=== PATIENT | male | born 1945 | race Caucasian/White ===

== ENCOUNTER → 2018-06-04 10:18 | Outpatient (CLI) | payer OTHER, SELFPAY ==
[2018-06-04 11:56] LABS: Absolute Lymphocyte Count 1.93 X10^3/ul (0.83-4.51); Absolute Neutrophil Count 2.9 X10^3/uL (2.0-7.7); Basophil# 0.04 X10^3/uL; Basophil% 0.7 % (0-1); Eosinophil# 0.14 X10^3/uL; Eosinophils% 2.5 % (0-5); Hematocrit 45.5 % (40-54); Hemoglobin 15.4 g/dl (13.0-16.5); Lymphocyte # 1.93 X10^3/ul (4.0); Lymphocyte % 34.5 % (19-41); Mean Corp Hgb Conc 33.8 g/gl (32-36); Mean Corpuscular Volume 88.7 fL (80-94); Mean Platelet Vol. 9.6 fl (6.2-12.0); Monocyte# 0.63 X10^3/uL; Monocyte% 11.3 % (0-10); Neutrophil # 2.85 X10^3/uL (2.7-7.7); Neutrophil % 50.8 % (47-70); POSITIVE COUNT NO; POSITIVE DIFFERENTIAL NO; POSITIVE MORPHOLOGY NO; Platelet Count 278 K/mm3 (150-450); RBC Distribution Width CV 12.9 % (11.6-14.6); RBC Distribution Width SD 41.8 fl (35.1-43.9); Red Blood Count 5.13 M/mm3 (4.6-6.2); White Blood Count 5.6 K/mm3 (4.4-11.0)
[2018-06-04 12:33] LABS: ALB/GLOB Ratio 0.9 RATIO (0.9-2.4); AST(SGOT) 25 U/L (15-37); Alanine Aminotransfer ALT/SGPT 36 U/L (16-61); Albumin, Serum 3.7 g/dL (3.2-5.0); Alkaline Phosphatase 89 U/L (45-117); Anion Gap 9 (5-15); BUN 17 mg/dL (7-18); BUN/Creat Ratio 19.8 RATIO (10-20); Calcium,Total 8.8 mg/dL (8.5-10.1); Chloride 107 mmol/L (98-107); Creatinine, Serum 0.86 mg/dL (0.70-1.30); EST Glomerular Filtration Rate 93 mL/min (>60); Est Glom Filt Rate - Afr Amer 113 mL/min (>60); Globulin 3.9 g/dL (2.2-4.2); Glucose 98 mg/dL (74-106); Potassium 3.9 mmol/L (3.5-5.1); Protein, Total 7.6 g/dL (6.4-8.2); Sodium Level 143 mmol/L (136-145)
== END ==
PROVIDERS: Family Provider Family Medicine; PCP Family Medicine; Visit Provider Family Medicine
DX: R97.20 Elevated prostate specific antigen [PSA] (principal)
CPT/HCPCS: 36415; 80053; 84153; 85025

== ENCOUNTER → 2019-07-26 12:37 | Outpatient (CLI) | payer MEDICARE, SELFPAY | PROVIDERS: Family Provider Family Medicine; PCP Family Medicine; Referring Provider Urology; Visit Provider Urology | DX: R97.20 Elevated prostate specific antigen [PSA] (principal) | CPT/HCPCS: 36415; 84153 ==

== ENCOUNTER 2020-02-04 20:56 | Emergency (ER) | payer MEDICARE, SELFPAY ==
[2020-02-04 20:57] VITALS: BP 149/77; PULSE 85; RESP 18; TEMP 35.7; O2SAT 97; BMI 26.6
--- NOTE | 2020-02-04 21:32 | ED.VIS.GEN ---
History of Present Illness Chief Complaint: Head Injury Informant: Patient Onset: Today Narrative: Patient states that he was working on his deck trying to get a screw out with a crowbar. The crowbar came up and struck him at the vertex of his scalp. He noted bleeding. Tetanus is up-to-date. No loss of consciousness. He is unsure if the wound needed medical attention Past Medical History - Allergies and Home Meds Allergies/Adverse Reactions: Allergies aspirin Allergy (Verified 02/04/20 20:57) Shortness of breath Primary Care Physician: Brian Beard MD [Primary Care Provider] - Smoking Status: Never smoker Review of Systems General: Denies: Chills, Fever, Sweats Eyes: Denies: Visual changes - bilaterally, Diplopia ENT: Denies: Rhinorrhea, Sore throat Cardiovascular: Denies: Chest pain, Palpitations Respiratory: Denies: Dyspnea, Cough, Dyspnea on exertion Gastrointestinal: Denies: Abdominal pain, Nausea, Vomiting, Diarrhea, Melena, Hematochezia Genitourinary: Denies: Dysuria, Hematuria, Frequency Musculoskeletal: Denies: Back pain, Extremity Pain Skin: Denies: Rash, Wounds Neurological: Denies: Headache, Weakness, Numbness Physical Exam Vital Signs/Narrative: Vital Signs Temp Pulse Resp BP Pulse Ox 02/04/20 20:57 96.3 F L 85 18 149/77 H 97 Inital Vital Signs reviewed: Yes General: Well nourished, Well developed, No Acute Distress Head: Normocephalic, Atraumatic Eyes: Perrl, EOMI ENT: Moist mucous membranes, No rhinorrhea Neck: Supple, Nontender Cardiovascular: Regular rate, Regular rhythm, No murmurs Respiratory: No distress, CTA bilaterally, Chest nontender Abdomen: Soft, Nontender, Nondistended, Normal bowel sounds Back: Nontender, Normal Inspection Extremities: Nontender, No edema Skin: Normal color, No rash, Trauma - There are 2 square flaps on the vertex of the scalp measuring 1 cm x 1 cm x 1 cm and attached posteriorly to the rest of the scalp. They do not go to subcutaneous tissue. They are consistent with a skin tear. Neurological: Alert, Oriented x3, Cranial nerves II-XII grossly intact, Normal Strength, Normal Sensation Psychological: Normal affect, Normal Mood Diagnostic/Tx/Re-eval - Medical Decision Making I think at this point is best not to do much with the tissue. The tissue is highly concussed and ecchymotic. It is very thin I think if we do nothing and allow the blood to clot he will have is good his cosmetic outcome is if we would suture or attempt to glue. Patient is comfortable with this plan. ED Disposition - Plan for ED Patient: Disposition: Home or Assisted Living Diagnosis: Skin tear Instructions: ED Head Injury Adult, ED AVULSION LACERATION Referrals: Brian Beard MD [Primary Care Provider] - As Needed
[2020-02-04 21:46] VITALS: BP 133/75; PULSE 74; RESP 18; O2SAT 99
== END 2020-02-04 21:47 | disposition home or self-care (01) ==
PROVIDERS: Emergency Provider Emergency Medicine; PCP Family Medicine
DX: S01.01XA Laceration without foreign body of scalp, initial encounter (principal); W22.8XXA Striking against or struck by other objects, initial encounter; Y92.89 Other specified places as the place of occurrence of the external cause; Y99.9 Unspecified external cause status; Z88.6 Allergy status to analgesic agent
CPT/HCPCS: 99282

== ENCOUNTER → 2020-07-03 11:46 | Outpatient (CLI) | payer MEDICARE, SELFPAY | PROVIDERS: PCP Family Medicine; Referring Provider Family Medicine; Visit Provider Family Medicine | DX: C61 Malignant neoplasm of prostate (principal) | CPT/HCPCS: 36415; 84153 ==

== ENCOUNTER → 2020-07-14 09:54 | Outpatient (CLI) | payer MEDICARE, SELFPAY ==
--- NOTE | 2020-07-14 10:01 | NM_ITS ---
CLINICAL: 75-year-old male with reported history of carcinoma of the prostate. WHOLE BODY 99m Tc MDP RADIONUCLIDE BONE SCINTIGRAPHY COMPARISON: None available FINDINGS: Following the intravenous administration of approximately 25.0 mCi of 99m Tc MDP, whole body bone images reveal: 1. Increased radiopharmaceutical concentration is identified in the mid cervical spine posteriorly on the right, the ninth, 11th-12th thoracic vertebra posteriorly on the right, bilateral wrist reticulations, the acromioclavicular compartments of both shoulders, sternoclavicular compartment of the right shoulder, medial tibial compartments of both knees, the posterior compartment of the left ankle. 2. The remaining skeletal structures are scintigraphically unremarkable with normal-appearing renal images and urinary bladder activity identified. Facilitated uptake is observed in the bilateral mandible and maxilla most consistent with periodontal disease and/or periostitis. NM/Bone Scan Whole Body IMPRESSION: 1. Enhanced tracer distribution defined in the cervical and thoracic spine, bilateral shoulders and wrists, knees bilaterally, the left ankle is most consistent with degenerative arthritis. 2. There is no definitive scintigraphic evidence of diffuse axial skeletal metastatic disease on the current examination. Electronically Signed: Cirilo Nance DO at 23:16 EST Tel , Service support ,
== END ==
PROVIDERS: PCP Family Medicine; Referring Provider Family Medicine; Visit Provider Family Medicine
DX: R97.20 Elevated prostate specific antigen [PSA] (principal)
CPT/HCPCS: 78306

== ENCOUNTER → 2020-07-20 09:07 | Outpatient (CLI) | payer MEDICARE, SELFPAY ==
[2020-07-20 09:41] LABS: Hematocrit 47.2 % (40-54); Hemoglobin 15.2 g/dL (13.0-16.5); Mean Corp Hgb Conc 32.2 g/dL (32-36); Mean Corpuscular Hgb 28.7 pg (27.0-32.0); Mean Corpuscular Volume 89.2 fL (80-94); Mean Platelet Vol. 8.8 fl (6.2-12.0); Platelet Count 275 K/mm3 (150-450); RBC Distribution Width CV 12.3 % (11.6-14.6); RBC Distribution Width SD 40.7 fl (35.1-43.9); Red Blood Count 5.29 M/mm3 (4.6-6.2); White Blood Count 6.2 K/mm3 (4.4-11.0)
[2020-07-20 10:11] LABS: Anion Gap 6 (5-15); BUN 15 mg/dL (7-18); BUN/Creat Ratio 14.6 RATIO (10-20); Calcium,Total 9.2 mg/dL (8.5-10.1); Chloride 109 mmol/L (98-107); Creatinine, Serum 1.03 mg/dL (0.70-1.30); EST Glomerular Filtration Rate 75 mL/min (>60); Est Glom Filt Rate - Afr Amer 91 mL/min (>60); Glucose 157 mg/dL (74-106); Potassium 3.7 mmol/L (3.5-5.1); Sodium Level 142 mmol/L (136-145)
== END ==
PROVIDERS: PCP Family Medicine; Referring Provider Urology; Visit Provider Urology
DX: Z01.812 Encounter for preprocedural laboratory examination (principal); Z11.59 Encounter for screening for other viral diseases; R97.20 Elevated prostate specific antigen [PSA]
CPT/HCPCS: 36415; 80048; 85027

== ENCOUNTER → 2020-07-23 09:28 | Outpatient (CLI) | payer MEDICARE, SELFPAY ==
--- NOTE | 2020-07-23 09:29 | EKG12_ITS ---
Test Reason : PRE OP Blood Pressure : / mmHG Vent. Rate : 067 BPM Atrial Rate : 067 BPM P-R Int : 154 ms QRS Dur : 098 ms QT Int : 404 ms P-R-T Axes : 058 -05 048 degrees QTc Int : 426 ms Normal sinus rhythm Normal ECG Confirmed by ALYSA KRUEGER, EMILI ([id number]), marketing editor FEDERICO WELDON ([id number]) on 07/27/2020 1:11:45 PM Referred By: Ethan Oliveros Confirmed By:SARAH WATT MD
== END ==
PROVIDERS: PCP Family Medicine; Referring Provider Urology; Visit Provider Urology
DX: Z01.812 Encounter for preprocedural laboratory examination (principal); Z11.59 Encounter for screening for other viral diseases
CPT/HCPCS: 87635; 93005; C9803; U0003

== ENCOUNTER → 2020-07-31 15:56 | Outpatient (CLI) | payer MEDICARE, SELFPAY ==
--- NOTE | 2020-07-31 | IMM_PTH ---
PATIENT: MOMO JEFFERSON LOC: [facility] U#:[id number] AGE/SX: 80/M ROOM: RE07/31/[address]: Dr. Ethan Oliveros MD : 1945 BED: DIS: SPEC #: [id number] RECD: 08/04/20 10:54 STATUS: ABE REBrendon #: [id number] KEYONNA: 07/31/20 00:[address]: Ethan Oliveros DEPT: IMMUNOHISTOCHEMISTRY RECD BY: Kelly Huang ENTERED: 08/04/20 10:55 SP TYPE: IMMUNO OTHR DR: Dr. Brian Beard MD Tissues: E - PROSTATE LEFT Procedures: P40 (add) 34BE12 (initial) PHYSICIAN & INSTITUTION [place] [id number] SPECIMEN INFORMATION: Tissue Source: E - Left prostate, mid, core biopsy Clinical Info: Elevated PSA, BPH Specimen Number: [id number] CPT code: 99194, 57153 METHODOLOGY: Deparaffinized sections of prefer/formalin-fixed tissue or PAP/DQ stained slides are incubated with monoclonal/polyclonal antibodies/oligonucleotide probes. Localization is made via biotin free immunoperoxidase method. Appropriate controls are performed and reacted as expected. Results on target cell population are indicated in the following table: RESULTS: ANTIBODY / CLONE RESULT Block E P40 (BC28) negative 34BE12 (34BE12) negative These tests were developed and their performance characteristics determined by [facility]. They may not have been cleared or approved by the U.S. Food and Drug Administration. The FDA has determined that such clearance or approval is not necessary. The above immunohistochemical/dualISH markers are ordered and reviewed by the Pathologist. INTERPRETATION: E. Left prostate, mid, core biopsy: Adenocarcinoma. KAVON:amanda 08/05/20
--- NOTE | 2020-07-31 08:40 | PROSBIL_PTH ---
PATIENT: MOMO JEFFERSON LOC: [facility] U#:[id number] AGE/SX: 80/M ROOM: RE07/31/[address]: Dr. Ethan Oliveros MD : 1945 BED: DIS: SPEC #: [id number] RECD: 07/31/20 15:21 STATUS: ABE LEAH #: [id number] KEYONNA: 07/31/20 08:[address]: Ethan Oliveros DEPT: SURGICAL PATHOLOGY RECD BY: Manda Nuñez ENTERED: 08/03/20 07:14 SP TYPE: PROST BX KATHY DR: Dr. Brian Beard MD [facility] Tissues: A - PROSTATE RIGHT B - PROSTATE RIGHT C - PROSTATE RIGHT D - PROSTATE LEFT E - PROSTATE LEFT F - PROSTATE LEFT Procedures: PROSTATE BX HEADER OPERATION: Cystoscopy and transrectal ultrasound-guided prostate biopsy PRE-OP DIAGNOSIS: Elevated PSA, BPH TISSUE SUBMITTED: A - Right base, B - Right mid, C - Right apex, D - Left base, E - Left mid, F - Left apex MICROSCOPIC DIAGNOSIS A. Right prostate, base, core biopsy: Glandular atrophy and minimal chronic inflammation. B. Right prostate, mid, core biopsy: Glandular atrophy and minimal chronic inflammation. C. Right prostate, apex, core biopsy: Focal glandular atrophy. Minimal chronic inflammation. D. Left prostate, base, core biopsy: Focal glandular atrophy. Minimal chronic inflammation. E. Left prostate, mid, core biopsy: Adenocarcinoma. [place] grade: 6 (3+3) Cores involved: 2 out of 2 Tissue involved: 10% Greatest tumor length: 2 millimeters See comment. F. Left prostate, apex, core biopsy: Chronic inflammation and focal glandular atrophy. AM:amanda 08/04/20 COMMENT E. Immunohistochemistry ([id number]) supports the above diagnosis. MICROSCOPIC DESCRIPTION Slides are reviewed. GROSS DESCRIPTION A - Received is one container designated prostate, right base. The specimen consists of two elongated fragments of light rothman-white soft tissue each measuring 1 cm in length and 0.1 cm in diameter. The specimen is totally submitted in one cassette. B - Received is one container designated prostate, right mid. The specimen consists of two elongated fragments of light rothman-white soft tissue each measuring 1.5 cm in length and 0.1 cm in diameter. The specimen is totally submitted in one cassette. C - Received is one container designated prostate, right apex. The specimen consists of three elongated fragments of light rothman-white soft tissue each measuring 1.5 cm in length and 0.1 cm in diameter. The specimen is totally submitted in one cassette. D - Received is one container designated prostate, left base. The specimen consists of two elongated fragments of light rothman-white soft tissue each measuring 1 cm in length and 0.1 cm in diameter. The specimen is totally submitted in one cassette. E - Received is one container designated prostate, left mid. The specimen consists of two elongated fragments of light rothman-white soft tissue each measuring 1.5 cm in length and 0.1 cm in diameter. The specimen is totally submitted in one cassette. F - Received is one container designated prostate, left apex. The specimen consists of two elongated fragments of light rothman-white soft tissue each measuring 1 cm in length and 0.1 cm in diameter. The specimen is totally submitted in one cassette. / AM:rg 08/03/20 TC:0 CPT: G0146
== END ==
PROVIDERS: PCP Family Medicine; Referring Provider Urology; Visit Provider Urology
DX: R97.20 Elevated prostate specific antigen [PSA] (principal); N40.0 Benign prostatic hyperplasia without lower urinary tract symptoms
CPT/HCPCS: 88305; 88341; 88342; G0416

== ENCOUNTER → 2020-08-04 10:48 | Outpatient (CLI) | payer MEDICARE, SELFPAY ==
--- NOTE | 2020-08-04 10:52 | ART_ITS ---
Reason For Study: PAD Procedure A bilateral lower extremity continuous wave Doppler with analog waveform analysis and ankle brachial indexes. Left Segmental Pressures Left brachial= 132mmHg. Left posterior tibial artery = 174mmHg. Left dorsalis pedis artery = 156mmHg. The left dorsalis pedis waveforms are triphasic. The left posterior tibial artery waveforms are triphasic. Right Segmental Pressures Right brachial= 140mmHg. Right posterior tibial artery = 165mmHg. Right dorsalis pedis artery = 157mmHg. The right dorsalis pedis waveforms are triphasic. The right posterior tibial artery waveforms are triphasic. Indices The right ankle brachial index by the posterior tibial artery is 1.18. The right ankle brachial index by the dorsalis pedis is 1.12. The left ankle brachial index by the posterior tibial artery is 1.24. The left ankle brachial index by the dorsalis pedis is 1.11. Interpretation Summary Triphasic Doppler waveforms are noted at ankle level bilaterally. Pulse-volume recordings appear satisfactory at ankle level bilaterally. Resting ankle-brachial indices are normal bilaterally. The patient was ambulated on a treadmill for 5 minutes at 2.0 MPH and a 5% incline, following which ankle pressures augmented bilaterally, a normal physiological response. There is no evidence of significant arterial occlusive disease in the lower extremities bilaterally. Ordering Physician: Brian Beard Performed By: KIRSTEN SOLANO RVT
== END ==
PROVIDERS: PCP Family Medicine; Referring Provider Family Medicine; Visit Provider Family Medicine
DX: I73.9 Peripheral vascular disease, unspecified (principal)
CPT/HCPCS: 93922

== ENCOUNTER 2020-09-16 05:23 | Day surgery (SDC) | payer MEDICARE, SELFPAY ==
[2020-09-16] VITALS (11 sets, daily range): BP systolic 108–125; BP diastolic 52–84; PULSE 76–99; RESP 14–16; TEMP 36.1–36.8; O2SAT 93–99; BMI 26.3
--- NOTE | 2020-09-16 | IMM_PTH ---
PATIENT: MOMO JEFFERSON [place] [facility] [id number] AGE/SX: 75/M ROOM: RE09/16/[address]: Dr. Ethan Oliveros MD : 1945 BED: DIS: 09/17/2020 SPEC #: [id number] RECD: 09/18/20 11:52 STATUS: ABE REQ #: [id number] KEYONNA: 09/16/20 00:[address]: Ethan Oliveros DEPT: IMMUNOHISTOCHEMISTRY RECD BY: Kelly Huang ENTERED: 09/18/20 11:53 SP TYPE: IMMUNO OTHR DR: Dr. Brian Beard MD Tissues: B - Prostate, NOS Procedures: P40 (add) 34BE12 (initial) PHYSICIAN & INSTITUTION [place] [id number] SPECIMEN INFORMATION: Tissue Source: B - Prostate Clinical Info: Malignant neoplasm of prostate, elevated PSA Specimen Number: [id number] CPT code: 72684, 77271 METHODOLOGY: Deparaffinized sections of prefer/formalin-fixed tissue or PAP/DQ stained slides are incubated with monoclonal/polyclonal antibodies/oligonucleotide probes. Localization is made via biotin free immunoperoxidase method. Appropriate controls are performed and reacted as expected. Results on target cell population are indicated in the following table: RESULTS: ANTIBODY / CLONE RESULT Block B8 P40 (BC28) negative 34BE12 (34BE12) negative These tests were developed and their performance characteristics determined by [facility]. They may not have been cleared or approved by the U.S. Food and Drug Administration. The FDA has determined that such clearance or approval is not necessary. The above immunohistochemical/dualISH markers are ordered and reviewed by the Pathologist. INTERPRETATION: [place]. Prostate: Adenocarcinoma. AM:amanda 09/21/2020
--- NOTE | 2020-09-16 | PROST_PTH ---
PATIENT: MOMO JEFFERSON LOC: [facility] [place] U#:[id number] AGE/SX: 75/M ROOM: RE09/16/[address]: Dr. Ethan Oliveros MD : 1945 BED: DIS: 09/17/2020 SPEC #: [id number] RECD: 09/16/20 12:21 STATUS: ABE LEAH #: [id number] KEYONNA: 09/16/20 00:[address]: Ethan Oliveros DEPT: SURGICAL PATHOLOGY RECD BY: Rickie Márquez ENTERED: 09/17/20 07:42 SP TYPE: PROSTATE OTHR DR: Dr. Brian Beard MD Tissues: A - Adipose tissue B - Prostate, NOS Procedures: Surgery Specimen Level III Surgery Specimen Level HEADER OPERATION: Lap robotic radical prostatectomy, nerve sparing PRE-OP DIAGNOSIS: Malignant neoplasm of prostate, elevated PSA TISSUE SUBMITTED: A - Fat over prostate, B - Prostate MICROSCOPIC DIAGNOSIS A. Fat over prostate, biopsy: Mature adipose tissue. No evidence of malignancy. B. Prostate, radical prostatectomy: Adenocarcinoma. See cancer template below. AM:amanda 09/21/2020 COMMENT PROSTATE CANCER (RADICAL) SUMMARY Procedure: Radical Prostatectomy Prostate Size: 6.5 x 5 x 4 cm Histologic type: Adenocarcinoma Histologic grade: 6 (3+3) Percent of Pattern 4: 0 Percent of Pattern 5: 0 Intraductal Carcinoma: Not identified Tumor Quantitation: 3 x 3 x 1 mm Extraprostatic Extension: Not identified Urinary Bladder Neck Invasion: Not identified Seminal Vesicle Invasion: Not identified Lymphvascular Invasion: Not identified Perineural Invasion: Not identified Margins: Free of carcinoma Regional Lymph Nodes: Not submitted Treatment Effect: Unknown Additional Pathologic Findings: Benign prostatic hyperplasia and chronic inflammation. Ancillary studies: Immunohistochemistry ([id number]) PATHOLOGIC STAGE: pT2 Nx Mx The above summary is in compliance with [employer] (CAP) Cancer Protocols Checklist and [place] Joint Committee on Cancer (AJCC), Staging Manual, 8th Ed. Reference is made to the patient's previous case ([id number]) in which a 2mm focus of adenocarcinoma, 6(3+3), was identified in two of thirteen cores. Case has been reviewed in consultation with Dr. Harrison who concurs with the above diagnosis. IDC:[email or web address] MICROSCOPIC DESCRIPTION Slides are reviewed. GROSS DESCRIPTION A - Received in fixative is one container labeled with the patient's name and designated fat over prostate. The specimen consists of an irregular fragment of rothman-yellow fibrofatty tissue measuring 3 x 2 x 1 cm. Serial sections do not reveal mass lesions. The specimen is sectioned and totally submitted in one cassette. B - Received in fixative is one container labeled with the patient's name and designated prostate. The specimen consists of a radical prostatectomy specimen consisting of prostate and bilateral seminal vesicles. The specimen weighs 99 gm. The prostate measures 6.5 cm transversely, 4 cm anterior-posteriorly and 5 cm craniocaudally. The specimen is differentially inked as follows: anterior - red, posterior - black, right half - blue, left half - green. The specimen is serially sectioned from apex to base. No distinct mass lesion is identified. Herpetology Teacher sections are submitted in 20 cassettes as follows: 1??distal urethral margin, shave, 2 - bladder neck shave, 3 & 4 - most basal section of prostate, 5??seminal vesicles, 6-9 - apex, 10-15 - mid portion of prostate, 16-20 - basal portion of prostate. / AM:amanda 09/17/2020 TC:0 CPT: 89541, 36266
[2020-09-16] MEDS: Lactated Ringers 1,000 ML 100 ML IV ×3 (06:18→09:15)
[2020-09-16] MEDS: Cefazolin 2 GM in 0.9% Normal Saline 100 ML IV (07:25)
--- NOTE | 2020-09-16 07:32 | HP.PCM_ITS ---
Problem List (1) Prostate cancer Status: Acute History of Present Illness Date of Admission: 09/16/20 Chief Complaint: Prostate cancer The patient is a 75 year old male with prostate cancer, very healthy male with no medical problems today we talked at the options of management we discussed the possibility of doing active surveillance but he wants to have the cancer treated. So he elected to undergo radical prostatectomy and working to proceed with bilateral nerve sparing. Past Medical History Allergies aspirin Allergy (Verified 09/16/20 05:45) Shortness of breath Home Medications: Ambulatory Orders Medication Instructions Recorded Ergocalciferol [Vitamin D] 1 tab DAILY 09/09/20 Multivitamin 09/09/20 Pitavastatin Calcium [Livalo] 2 mg PO QWEEK 09/09/20 Saw/Vit E/Sod Jodi/Lyc/Beta/Pyg 09/09/20 [Prostate Health Caplet] Surgical History: no surgical history Smoking Status: Never smoker Review of Systems Constitutional: Denies: Chills, Fever, Weight Change HEENT: Denies: Head Aches, Sinus Congestion, Sinus Drainage Cardiovascular: Denies: Chest Pain, Palpitations Respiratory: Denies: Cough, Shortness of breath at rest, Sputum production Gastrointestinal: Denies: Abdominal Pain, Nausea, Vomiting Genitourinary: Denies: Dysuria Musculoskeletal: Denies: Joint Pain, Joint Tenderness Skin: Denies: Rash, Wounds Neurological: Denies: Numbness, Tingling, Focal weakness Psychiatric: Denies: Anxiety, Depression, Homicidal Ideations, Suicidal Ideations Hematologic/ Lymphatic: Denies: Easy Bruising, Easy Bleeding VTE Information - Inpt Only VTE Present on Admission: No - Physical Exam Vitals/I&O's: Vital Signs Temp Pulse Resp BP Pulse Ox 98.3 F 76 16 121/71 H 95 09/16/20 06:11 09/16/20 06:11 09/16/20 06:11 09/16/20 06:11 09/16/20 06:11 Oxygen Delivery Method Room Air Weight: 76.2 kg Body Mass Index (BMI) 26.3 General: Alert, Oriented x3, Cooperative HEENT: Atraumatic, PERRLA, EOMI, Normocephalic Neck: Supple, No JVD, Negative Carotid Bruits Lungs: Clear to auscultation, Normal air movement Cardiovascular: Regular rate, No murmurs Abdomen: Bowel Sounds Present, Soft, Non Tender Extremities: No edema, Capillary Refill Less than 3 Seconds Skin: No rashes, No breakdown Musculoskeletal: No Tenderness to Palpation of Joints or Extremities Neurological: Cranial nerves II-XII grossly intact Psych/Mental Status: Normal Affect, Appropriate Microbiology Past 72 Hours 09/15/20 09:15 Interface Orders SARS-CoV-2 Antigen (Rapid) - Final Current Medications Cefazolin Sodium 2 gm/ Sodium (Chloride) 110 mls @ 150 mls/hr IV PREOP ONE Stop: 09/16/20 08:13 Lactated Ringer's () 1,000 mls @ 100 mls/hr IV .Q10H BUD Last Admin: 09/16/20 06:18 Dose: 100 mls/hr Documented by: Lactated Ringer's () 1,000 mls @ 100 mls/hr IV .Q10H [facility] Last Admin: 09/16/20 06:19 Dose: 100 mls/hr Documented by: Assessment/Plan All Active Problems Prostate cancer (Acute) Healthy 75-year-old male with prostate cancer who after consultation we discussed the options of active surveillance, radical prostatectomy, radiation treatments. He wants to have surgery to remove his prostate understands there is a risk of damage to the nerves and development of erectile dysfunction there is also the possibility of control problems and leakage after the surgery. And there is a risk of bleeding infection and complications with surgery after reviewing this with the patient in the office in great detail with the patient he desires to proceed and presented to the hospital for robotic radical prostatectomy with bilateral nerve sparing and signed the consent form.
--- NOTE | 2020-09-16 07:41 | DCINST_ITS ---
Discharge Diet: Light diet - advance as tolerated Discharge Activity: Return to Normal Activity Return to work on:: 10/28/20 May shower in (days): 1 Call your doctor if your incision/area has: Continuous Slow Oozing, Sudden Increased Bleeding, Increased Pain/ Swelling, Increased Redness, Foul Smelling Discharge, Swelling at the incision site Suture Line Care: Avoid Pulling/Pushing, Avoid Pinching/Bending Instructions: Radical Prostatectomy Allergies/Adverse Reactions: Allergies aspirin Allergy (Verified 09/16/20 05:45) Shortness of breath Medications to take at Discharge Ergocalciferol [Vitamin D] 1 tab DAILY 09/09/20 Multivitamin 09/09/20 Pitavastatin Calcium [Livalo] 2 mg PO QWEEK 09/09/20 Saw/Vit E/Sod Jodi/Lyc/Beta/Pyg [Prostate Health Caplet] 09/09/20 Ciprofloxacin [Cipro] 500 mg PO BID #14 tab 09/16/20 Docusate Sodium [Colace] 100 mg PO BID #20 cap 09/16/20 Hydrocodone/Acetaminophen [[place] 5-325 Tablet] 1 each PO Q4H PRN PRN 10 Days #14 tablet 09/16/20 The following prescriptions were given: Ciprofloxacin [Cipro] 500 mg PO BID #14 tab [id number] Docusate Sodium [Colace] 100 mg PO BID #20 cap [facility]: [id number] Hydrocodone/Acetaminophen [[place] 5-325 Tablet] 1 each PO Q4H PRN PRN 10 Days #14 tablet PRN Reason: Pain Score 1-10 Transmission Status[facility] Primary Care Physician: Brian Beard MD [Primary Care Provider] - Test Results: Test results from this visit will be discussed in further detail at your follow- up appointment, if applicable. Please Follow Up With: Ethan Oliveros MD When: in 2 weeks, please call to make an appointment. Proposed Discharge Date: 09/17/20
[2020-09-16] MEDS: Bupivacaine Mpf 0.5% 30 ML VIAL (11:00)
--- NOTE | 2020-09-16 11:42 | PCM.OPRPT ---
Problem List (1) Prostate cancer Status: Acute Report of Operation Pre-Operative Diagnosis: prostate cancer Post-Operative Diagnosis: same Surgery/Procedure Performed:: robotic radical prostatectomy Description of Surgical Findings:: Patient presented to the hospital for treatment of his prostate cancer with radical prostatectomy. In the preoperative setting we discussed the options of management for his prostate cancer including active surveillance, radiation treatments, radioactive seeds, and radical robotic prostatectomy. We discussed the side effects of surgery including the potential to lose erections. We discussed the potential to have bladder control problems with stress incontinence which can be temporary or permanent. We discussed the risk of the surgery including the risk of general anesthetic, risk of bleeding, risk of infection, and risk of formation of hernia either incisional hernia or inguinal hernia. After long discussion with the patient the preoperative setting and also reviewed this in the preop area patient signed the consent form and we proceeded with a radical prostatectomy. Patient was taken back to the operating room he was identified, time out procedure was performed and he was placed supine on the table he underwent general anesthesia with intubation. The abdomen was shaved prepped and draped in usual sterile fashion as well as the penis and testicles. A 16 [place]bourgish catheter was placed into the bladder with clear return of urine. I then made an incision in the umbilicus and dissected down to the fascia advance a Veress needle into the peritoneal cavity and insufflated the peritoneal cavity with CO2 gas. I then placed a 12 mm trocar above the umbilicus. I then visualized the placement of the rest of the trochars, I placed a right arm robotic trocar, and air seal trocar, a suction port 5 mm trocar. And on the left side I placed 2 robotic arms. Once all the trochars were in placed the patient was put in steep Trendelenburg. And the robot was docked the arms were docked and then I placed the 0 degree camera through the robotic arm and also used a 30 degree camera during certain parts of the case. I used scissors in the right arm, prograsp in the third arm, and a bipolar in the second arm. Initial dissection was to free the sigmoid colon off the lateral wall this was done by meticulously dissecting off the peritoneum and the sigmoid colon off the left lateral wall. This then allowed the prograsp to retract the sigmoid colon out of the pelvis. I then went below the bladder and identified the vas deferens incised the peritoneum over the vas deferens and traced the vas deferens below the bladder to the prostate and identified the right and left vasa deferens. Below behind the vas deferens then the seminal vesicles were identified. I then dissected the seminal vesicle free using pinpoint electrocautery and then we identified the other seminal vesicle and then dissected this using pinpoint electrocautery I then elevated the vas deferens and several vesicles off the prostate and was able to sweep the Denonvilliers' fascia off the prostate posteriorly all the way up to the apex of the prostate. Working laterally I made sure I went as lateral as possible to sweep the Denonilliers' fascia off the posterior aspect of the prostate and worked my way back, I then transected the vas deferens and the left and right side the seminal vesicles were then dissected free. And then I pulled out of the pelvis. At this point the bladder was dropped creating the space of Retzius with the bladder on traction with the fourth arm. Using electrocautery I dissected in the anterior peritoneal fascia and then created the space of Retzius dissecting towards the prostate. The prostate was then cleaned of the fat over the prostate and the fourth arm was used to retract the bladder and place traction. I then identified the endopelvic fascia that was overlying the prostate on the right side I incised endopelvic fascia and wwept the levator muscles off the prostate all the way to the apex on the right side, I then worked my way anterior to the prostate then transected to the puboprostatic ligament and the underlying dorsal vein complex was not injured. I then went to the other side and identified the endopelvic fascia in the left side incised in a fashion the left side and swept the levator muscles off the prostate on the left side all the way up to the apex the puboprostatic ligament on the left side was then dissected and transected I then freed up the fascia overlying the dorsal vein complex. I then used the prograsp to encircled the dorsal vein complex with the prograsp and then switched over to the right and left needle bicycle taxi driver and suture ligated the dorsal vein complex above the prograsp. The prograsp was then placed back in the bladder and put back on traction I then identified the junction between the bladder and the prostate and dissected down between the bladder and the prostate untilI came across the catheter we then dissected posteriorly to the bladder and prostate to free the prostate and the bladder off each other and the muscles between the bladder and the prostate was then cauterized to free up the bladder. I then went on top of the prostate and identified the endopelvic fascia on top of the prostate this was incised all the way to the apex and then we swept the endopelvic fascia off the prostate laterally and then identified the plane between endopelvic fascia and the prosthetic pseudocapsule and swept the fascia laterally until reaching the course of the neurovascular bundles and then released the neurovascular bundles off the prostate laterally all the way back in a retrograde fashion back to the junction of the pedicles then the prostate was placed on traction with the fourth arm pulling the prostate laterally identified the pedicle to the prostate between the seminal vesicles and the and the neurovascular bundle and this was taken using sequential small hemolocks. After the pedicle was taken the I then dissected underneath the prostate sweeping the neurovascular bundle off the prostate we able to follow the nice smooth plane between the neurovascular bundle and the pseudocapsule all the way to the apex once this was identified we swept this up all the way up to the apex and there was perfect nerve sparing on the right side. Then went to the left side the prostate identified the endopelvic fascia over the left side of the prostate I incised the endopelvic fascia all the way to the apex and then swept this off laterally I then released the neurovascular bundles on the left side of the prostate sweeping him off the prostate laterally I then elevated the prostate up up with the prostate and traction identified the pedicle to the prostate on the left side and then the pedicles taken with sequential Hem-o-gregoria clips I then was able to dissected the neurovascular bundle off the left posterior aspect the prostate this was a perfect dissection all the way up on the left side following the pseudocapsule all the way up the left side until we reached the apex of the prostate. After the both the neurovascular bundles has been swept off the posterior to the prostate I then went above and transected the dorsal vein complex there was minimal to no bleeding but then dissected down to the urethra and circumfencial dissected around the urethra I then switched the right and left arm with the needle drivers and I suture-ligated the dorsal vein complex again just to ensure that there was no bleeding from the dorsal vein complex. I then transected through the urethra with scissors and the prostate was then freed and released off the prostate bed and put an Endo Catch bag. At this point the bladder neck was reconstructed and then an anastomosis was performed between the prostate and the bladder with a 3 oh V-Loc stitch in a running fashion starting from the bladder neck at the 6 o'clock position working to the 12 o'clock position with continuous stitches to complete a perfect anastomosis between the bladder and the prostate. I then placed a new catheter into the bladder, an 18 [place] tip catheter flushed the bladder and there was no leakage from the anastomosis I put 10 cc in the balloon and pulled it up pulled back gently. I then ensured that there was no bleeding from the dorsal vein complex no bleeding from the neurovascular bundles FloSeal was placed as necessary once hemostasis was ensured and adequate then I placed the bladder back in position in the pelvis the prostate was exchanged to the camera port I closed the air seal port with a 10 12 Vin Anderson stitch. And the extracted the prostate through the umbilicus. The robot was undocked all the ports were removed under direct visualization then closed the extraction site with 0 Vicryl with a CT1 needle once the extraction site was closed. I then closed all the incision with subcuticular stitches with 4-0 Monocryl and then bandages were placed on the incisions catheter was flushed to make sure it was draining well there was no clots and it was crystal clear patient's anesthetic was reversed he was extubated and taken back to the PACU in stable condition all the needles and sponges and instruments were accounted for. Blood loss was minimal and the drain was a 18 [place] catheter. No other surgical drain was left. I was present during the entire case. Type of Anesthesia:: General Drains: 18 fr hill - Admit VTE Documentation VTE Present on Admission: No VTE Mechan Device Prophylaxis: SCD's
[2020-09-16] MEDS: oxyCODONE 5 MG Tablet PO (13:34)
[2020-09-16] MEDS: Acetaminophen 325 MG Tablet PO (13:35)
[2020-09-16] MEDS: 0.9% Normal Saline 1,000 ML 125 ML IV ×2 (14:14→23:18)
[2020-09-16] MEDS: Ciprofloxacin 400 MG/200 ML BAG 200 MG IV (14:17)
[2020-09-16] MEDS: Pantoprazole Sodium 40 MG Tablet PO (16:29)
[2020-09-16] MEDS: Ketorolac 15 MG/ML Vial IV ×2 (16:30→21:13)
--- NOTE | 2020-09-16 21:07 | NURSING ---
assisted pt to chair with content specialist holland. pt tolerated activity well. denies feeling dizzy or light headed
[2020-09-16] MEDS: Docusate Sodium 100 MG Capsule PO (21:13)
[2020-09-16] MEDS: 0.9% Saline Lock 10 ML Syringe IV (21:13)
[2020-09-17 02:10] VITALS: BP 107/60; PULSE 69; RESP 16; TEMP 36.4; O2SAT 95
[2020-09-17] MEDS: Ciprofloxacin 400 MG/200 ML BAG 200 MG IV (02:11)
[2020-09-17] MEDS: Ketorolac 15 MG/ML Vial IV ×2 (04:47→10:14)
[2020-09-17] MEDS: 0.9% Saline Lock 10 ML Syringe IV ×2 (04:47→10:14)
[2020-09-17] MEDS: Mag Hydrox/Al Hydrox/Simeth 30 ML UDC PO (04:51)
[2020-09-17 06:17] LABS: Hematocrit 39.3 % (40-54); Hemoglobin 12.8 g/dL (13.0-16.5); Mean Corp Hgb Conc 32.6 g/dL (32-36); Mean Corpuscular Hgb 29.4 pg (27.0-32.0); Mean Corpuscular Volume 90.3 fL (80-94); Platelet Count 253 K/mm3 (150-450); RBC Distribution Width CV 12.4 % (11.6-14.6); Red Blood Count 4.35 M/mm3 (4.6-6.2)
[2020-09-17 06:38] LABS: Anion Gap 2 (5-15); BUN 7 mg/dL (7-18); BUN/Creat Ratio 8.6 RATIO (10-20); Calcium,Total 8.1 mg/dL (8.5-10.1); Chloride 112 mmol/L (98-107); Creatinine, Serum 0.81 mg/dL (0.70-1.30); EST Glomerular Filtration Rate 99 mL/min (>60); Est Glom Filt Rate - Afr Amer 119 mL/min (>60); Estimated Creatinine Clearance 75.94 ml/min; Glucose 132 mg/dL (74-106); Potassium 3.9 mmol/L (3.5-5.1); Sodium Level 142 mmol/L (136-145)
[2020-09-17 07:28] VITALS: BP 113/59; PULSE 73; RESP 14; TEMP 36.6; O2SAT 96
[2020-09-17] MEDS: 0.9% Normal Saline 1,000 ML 125 ML IV (10:12)
[2020-09-17] MEDS: Pantoprazole Sodium 40 MG Tablet PO (10:13)
[2020-09-17] MEDS: Docusate Sodium 100 MG Capsule PO (10:13)
--- NOTE | 2020-09-17 11:05 | PHA.DC.MC ---
Pharmacy Service has performed discharge medication reconciliation and counseling for this patient. 1. CIPROFLOXACIN 500MG PO BID 2. DOCUSATE 100MG PO DAILY 3. NORCO 5/325MG PO 1T Q4H PRN PAIN The patient's discharge medication list was reviewed for discrepancies and discrepancies were resolved. Home Medications Ergocalciferol [Vitamin D] 1 tab DAILY 09/09/20 Multivitamin 09/09/20 Pitavastatin Calcium [Livalo] 2 mg PO QWEEK 09/09/20 Saw/Vit E/Sod Jodi/Lyc/Beta/Pyg [Prostate Health Caplet] 09/09/20 Ciprofloxacin [Cipro] 500 mg PO BID #14 tab 09/16/20 Docusate Sodium [Colace] 100 mg PO BID #20 cap 09/16/20 Hydrocodone/Acetaminophen [Woodland 5-325 Tablet] 1 ea PO Q4H PRN PRN 10 Days #14 tab 09/16/20 The patient was counseled on the following discharge medications and changes in medications for homegoing were reviewed. The Reason for Use, instructions for use, and potential side effects were reviewed for all new medications. The patient's questions regarding all of their medications were answered. The patient was able to verbally demonstrate an understanding of their discharge medications.
--- NOTE | 2020-09-17 12:54 | NURSING ---
Goetz and leg bag teaching done at this time for patient and . Written instructions given as well.
== END 2020-09-17 12:59 | disposition home or self-care (01) ==
LOC: SDC 05:24 → AC 05:24 → MS3 09-17 09:25
PROVIDERS: PCP Family Medicine; Referring Provider Urology; Visit Provider Urology
PROC: 0VT04ZZ Resection of Prostate, Percutaneous Endoscopic Approach (ICD-10-PCS; CPT 55866; principal; 2020-09-16 07:10)
DX: C61 Malignant neoplasm of prostate (principal)
CPT/HCPCS: 00865; 55866; 80048; 85027; 87426; 88304; 88309; 88341; 88342; 99251; C9803; J7030; J7120; A4216; G0463; J0744; J2405

== ENCOUNTER → 2020-10-15 10:08 | Outpatient (CLI) | payer MEDICARE, SELFPAY ==
[2020-09-16 13:19] VITALS: BMI 26.3
[2020-10-15 12:05] LABS: Cholesterol 251 mg/dL (200); High Density Lipoprotein 41 mg/dL; Triglycerides 188 mg/dL; Very Low Density Lipoprotein 38 mg/dL (5-40)
== END ==
PROVIDERS: PCP Family Medicine; Referring Provider Family Medicine; Visit Provider Family Medicine
DX: E78.00 Pure hypercholesterolemia, unspecified (principal)
CPT/HCPCS: 36415; 80061

== ENCOUNTER → 2021-01-25 08:51 | Outpatient (CLI) | payer MEDICARE, SELFPAY ==
[2020-09-16 13:19] VITALS: BMI 26.3
[2021-01-25 10:24] LABS: Hematocrit 47.5 % (40-54); Hemoglobin 15.6 g/dL (13.0-16.5); Mean Corp Hgb Conc 32.8 g/dL (32-36); Mean Corpuscular Hgb 29.1 pg (27.0-32.0); Mean Corpuscular Volume 88.5 fL (80-94); Mean Platelet Vol. 9.2 fl (6.2-12.0); Platelet Count 283 K/mm3 (150-450); RBC Distribution Width CV 13.3 % (11.6-14.6); RBC Distribution Width SD 43.3 fl (35.1-43.9); Red Blood Count 5.37 M/mm3 (4.6-6.2); White Blood Count 5.2 K/mm3 (4.4-11.0)
[2021-01-25 10:46] LABS: AST(SGOT) 24 U/L (15-37); Alanine Aminotransfer ALT/SGPT 31 U/L (16-61); Albumin, Serum 3.6 g/dL (3.2-5.0); Alkaline Phosphatase 81 U/L (45-117); Anion Gap 2 (5-15); BUN 14 mg/dL (7-18); BUN/Creat Ratio 15.7 RATIO (10-20); Chloride 110 mmol/L (98-107); Cholesterol 205 mg/dL (200); Creatinine, Serum 0.89 mg/dL (0.70-1.30); EST Glomerular Filtration Rate 89 mL/min (>60); Est Glom Filt Rate - Afr Amer 108 mL/min (>60); Globulin 3.7 g/dL (2.2-4.2); Glucose 113 mg/dL (74-106); High Density Lipoprotein 45 mg/dL; PSA,Total- Diagnostic < 0.01 ng/mL (0.0-4.0); Potassium 4.1 mmol/L (3.5-5.1); Protein, Total 7.3 g/dL (6.4-8.2); Sodium Level 142 mmol/L (136-145); Triglycerides 150 mg/dL; Very Low Density Lipoprotein 30 mg/dL (5-40)
== END ==
PROVIDERS: PCP Family Medicine; Visit Provider Family Medicine
DX: Z48.816 Encounter for surgical aftercare following surgery on the genitourinary system (principal); E78.00 Pure hypercholesterolemia, unspecified
CPT/HCPCS: 36415; 80053; 80061; 84153; 85027

== ENCOUNTER → 2021-04-27 15:04 | Outpatient (CLI) | payer MEDICARE, SELFPAY ==
[2020-09-16 13:19] VITALS: BMI 26.3
[2021-04-27 18:19] LABS: PSA,Total- Diagnostic < 0.01 ng/mL (0.0-4.0)
== END ==
PROVIDERS: PCP Family Medicine; Referring Provider Urology; Visit Provider Urology
DX: C61 Malignant neoplasm of prostate (principal)
CPT/HCPCS: 36415; 84153

== ENCOUNTER → 2022-01-10 | Outpatient (CLI) | payer MEDICARE, SELFPAY ==
[2022-01-10 16:04] LABS: PSA,Total- Diagnostic < 0.01 ng/mL (0.0-4.0)
== END | disposition home or self-care (01) ==
PROVIDERS: PCP Family Medicine; Referring Provider Urology; Visit Provider Urology
DX: Z85.46 Personal history of malignant neoplasm of prostate (principal)
CPT/HCPCS: 36415; 84153

== ENCOUNTER → 2022-06-01 | Outpatient (CLI) | payer MEDICARE, SELFPAY ==
[2022-06-01 10:36] LABS: Absolute Lymphocyte Count 2.21 X10^3/uL (0.83-4.51); Absolute Neutrophil Count 2.7 X10^3/uL (2.0-7.7); Basophil# 0.06 X10^3/uL; Eosinophil# 0.21 X10^3/uL; Eosinophils% 3.6 % (0-5); Hemoglobin 15.8 g/dL (13.0-16.5); Lymphocyte # 2.21 X10^3/ul (0.83-4.51); Mean Corp Hgb Conc 34.3 g/dL (32-36); Mean Corpuscular Hgb 30.7 pg (27.0-32.0); Mean Corpuscular Volume 89.5 fL (80-94); Mean Platelet Vol. 9.2 fl (6.2-12.0); Monocyte# 0.61 X10^3/uL; Monocyte% 10.5 % (0-10); NRBC Flagged by Analyzer 0 % (0-5); Neutrophil # 2.71 X10^3/uL (2.7-7.7); Neutrophil % 46.7 % (47-70); Platelet Count 280 K/mm3 (150-450); RBC Distribution Width CV 12.5 % (11.6-14.6); RBC Distribution Width SD 41.1 fl (35.1-43.9); Red Blood Count 5.14 M/mm3 (4.6-6.2); White Blood Count 5.8 K/mm3 (4.4-11.0)
[2022-06-01 11:00] LABS: ALB/GLOB Ratio 0.9 RATIO (0.9-2.4); AST(SGOT) 21 U/L (15-37); Alanine Aminotransfer ALT/SGPT 32 U/L (16-61); Albumin, Serum 3.5 g/dL (3.2-5.0); Alkaline Phosphatase 80 U/L (45-117); Anion Gap 6 (5-15); BUN 14 mg/dL (7-18); BUN/Creat Ratio 14.4 RATIO (10-20); Calcium,Total 8.8 mg/dL (8.5-10.1); Chloride 109 mmol/L (98-107); Cholesterol 239 mg/dL (200); Creatinine, Serum 0.97 mg/dL (0.70-1.30); EST Glomerular Filtration Rate 80 mL/min (>60); Est Glom Filt Rate - Afr Amer 97 mL/min (>60); Globulin 3.9 g/dL (2.2-4.2); Glucose 133 mg/dL (74-106); High Density Lipoprotein 40 mg/dL; PSA,Total- Diagnostic < 0.01 ng/mL (0.0-4.0); Potassium 3.7 mmol/L (3.5-5.1); Protein, Total 7.4 g/dL (6.4-8.2); Sodium Level 142 mmol/L (136-145); Triglycerides 172 mg/dL; Very Low Density Lipoprotein 34 mg/dL (5-40)
== END | disposition home or self-care (01) ==
LOC: MTLAB 08:53
PROVIDERS: PCP Family Medicine; Referring Provider Family Medicine; Visit Provider Family Medicine
DX: Z00.00 Encounter for general adult medical examination without abnormal findings (principal); C61 Malignant neoplasm of prostate; E78.00 Pure hypercholesterolemia, unspecified; M15.9 Polyosteoarthritis, unspecified
CPT/HCPCS: 36415; 80053; 80061; 84153; 85025

== ENCOUNTER 2022-07-16 12:10 | Emergency (ER) | payer MEDICARE, SELFPAY ==
[2022-07-16 12:10] VITALS: BP 139/74; PULSE 80; RESP 15; TEMP 35.9; O2SAT 97; BMI 26.6
[2022-07-16] MEDS: Fluorescein 1 MG STRIP 1 STRIP OPHTHALMIC (13:06)
[2022-07-16 13:30] VITALS: RESP 18
--- NOTE | 2022-07-16 13:30 | EDS_ITS ---
HPI History of Present Illness Chief Complaint: Eye Problem Informant: patient Narrative Narrative: Patient is a 77-year-old male with history of prostate cancer as well as cataract surgery presenting with chemical irritation to his left eye. Patient was using a mixture of water, household bleach and spick and span to clean outside of his house. He was wearing basic glasses but a piece of the liquid fell onto his left eye. He immediately rinsed his eye out for 10 to 15 minutes. He states his eye is little better but now just feels dry. Came in for further evaluation. 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 No other complaints at this time. Denies any blurry vision. PFSH PFSH Home Medications ergocalciferol (vitamin D2) 1,250 mcg (50,000 unit) capsule 1 tab PO DAILY 09/09/20 [History Last Taken Unknown] multivitamin 1 tab PO DAILY 09/09/20 [History Last Taken Unknown] pitavastatin calcium 2 mg tablet 2 mg PO QWEEK 09/09/20 [History Last Taken 08/31/20] ciprofloxacin HCl 0.3 % eye drops See Rx Instructions EACH EYE .COMPLEX #2.5 mL 07/16/22 [Rx Last Taken Unknown] erythromycin 5 mg/gram (0.5 %) eye ointment 1 applic LEFT EYE QHS 7 days #3.5 grams 07/16/22 [Rx Last Taken Unknown] Allergy/AdvReac Type Severity Reaction Status Date / Time aspirin Allergy Shortness Verified 07/16/22 12:10 of breath Social History Smoking Status: Never smoker ROS [facility] ED Constitutional Constitutional ED: Denies chills or fever(s) Eyes Eyes: Reports other Details: left eye pain ; Denies blurry vision or change in vision ENT ENT ED: Denies ear pain or rhinorrhea Cardiovascular Cardiovascular: Denies chest pain Respiratory/Chest Respiratory/Chest: Denies cough Gastrointestinal Gastrointestinal: Denies nausea or vomiting Musculoskeletal Musculoskeletal: Denies arthralgias or myalgias Integumentary Denies rash Neurologic Neurologic: Denies headache(s) or weakness Hematologic/Lymphatic Hematologic/Lymphatic: Denies easy bleeding or easy bruising EXAM Physical Exam Const Vital Signs: 07/16/22 12:10 Temperature 96.7 F L Temperature Source Temporal Pulse Rate 80 Respiratory Rate 15 Blood Pressure 139/74 H Blood Pressure Mean 95 Pulse Ox 97 Oxygen Delivery Method Room Air Positive well nourished and well developed General Appearance ED: well developed and NAD HEENT atraumatic Nose: external nose normal Eyes Eyes Narrative: Normal right eye. Injection of the left conjunctiva. Normal eyelids. No abnormal flare on slit-lamp exam. There is a subtle area of fluorescein uptake on the left cornea at approximately the 3 o'clock position. Normal EOMI. PERRL. Neck supple Neck Narrative: Normal range of motion Resp normal respiratory effort Cardio regular rate and regular rhythm GI non-distended Neuro oriented x3 and moves all extremities Sensorium / Orientation: alert Motor Exam: Negative for general weakness Psych Psych Narrative: Behaving appropriate Skin no wounds Lesions: no lesions Rashes: no rashes MDM MDM MDM Narrative Medical decision making narrative: Patient is evaluated for pain after chemical spilled into his left eye. He already irrigated his eye out. Symptoms are improving. Does have conjunctival injection. Has a mild abrasion/ulceration appreciated to the left eye. Patient was placed on ciprofloxacin drops and given erythromycin ointment for nighttime. We will follow-up with the scarfing machine operator on Monday. Counseled to not wear any contact lenses. Patient verbalized agreement understands plan. Visual acuity is 20/20 OD and 20/30 OS. Discharge Plan Triage Chief Complaint: Eye Problem ED Provider: Ayala Weeks Dx/Rx/DC Orders Clinical Impression: Chemical injury of left eye, Acute left eye pain Instructions: ED Eye Exposure, Chemical Prescriptions: New erythromycin 5 mg/gram (0.5 %) ointment 1 applic LEFT EYE QHS 7 Days Qty: 3.5 0RF ciprofloxacin HCl 0.3 % drops See Rx Instructions .ROUTE .COMPLEX Qty: 2.5 0RF Rx Instructions: put 1-2 drps in affected eye(s) every 2hr up to 8 times/day x2days; then 4 times/day x5days No Action multivitamin 1 EACH tablet 1 tab PO DAILY ergocalciferol (vitamin D2) 50,000 UNIT capsule 1 tab PO DAILY pitavastatin calcium 2 MG tablet 2 mg PO QWEEK Primary Care Provider: Brian Beard Referrals: Lewis Rebolledo MD [Med Staff - Active Staff] - 2 Days Brian Beard MD [Primary Care Provider] - Activity Restrictions/Additional Instructions: use Cipro eye drops during the day and the erythromycin oiontment at night. Disposition Disposition: Home, Self Care
[2022-07-16] MEDS: Ciprofloxacin 0.3% 2.5ml Bottle 2 DRP LEFT EYE (13:49)
== END 2022-07-16 13:51 | disposition home or self-care (01) ==
PROVIDERS: Emergency Provider Emergency Medicine; PCP Family Medicine; Visit Provider Emergency Medicine
DX: S05.92XA Unspecified injury of left eye and orbit, initial encounter (principal); H57.12 Ocular pain, left eye; Z97.3 Presence of spectacles and contact lenses; Z85.46 Personal history of malignant neoplasm of prostate
CPT/HCPCS: 99283; A4216

== ENCOUNTER 2023-01-16 08:57 | Outpatient (CLI) | payer MEDICARE, SELFPAY ==
[2023-01-16 09:40] LABS: Absolute Lymphocyte Count 1.99 X10^3/uL (0.83-4.51); Absolute Neutrophil Count 2.6 X10^3/uL (2.0-7.7); Basophil# 0.06 X10^3/uL; Basophil% 1.1 % (0-1); Eosinophil# 0.21 X10^3/uL; Eosinophils% 3.9 % (0-5); Hematocrit 48.6 % (40-54); Lymphocyte # 1.99 X10^3/ul (0.83-4.51); Lymphocyte % 36.6 % (19-41); Mean Corp Hgb Conc 32.9 g/dL (32-36); Mean Corpuscular Hgb 29.6 pg (27.0-32.0); Mean Corpuscular Volume 89.8 fL (80-94); Mean Platelet Vol. 8.8 fl (6.2-12.0); Monocyte# 0.54 X10^3/uL; Monocyte% 9.9 % (0-10); NRBC Flagged by Analyzer 0 % (0-5); Neutrophil # 2.62 X10^3/uL (2.7-7.7); Neutrophil % 48.3 % (47-70); Platelet Count 264 K/mm3 (150-450); RBC Distribution Width CV 12.3 % (11.6-14.6); RBC Distribution Width SD 40.5 fl (35.1-43.9); Red Blood Count 5.41 M/mm3 (4.6-6.2); White Blood Count 5.4 K/mm3 (4.4-11.0)
[2023-01-16 10:34] LABS: ALB/GLOB Ratio 0.9 RATIO (0.9-2.4); AST(SGOT) 22 U/L (15-37); Alanine Aminotransfer ALT/SGPT 34 U/L (16-61); Albumin, Serum 3.5 g/dL (3.2-5.0); Alkaline Phosphatase 82 U/L (45-117); Anion Gap 5 (5-15); BUN 15 mg/dL (7-18); BUN/Creat Ratio 15.8 RATIO (10-20); Calcium,Total 9.1 mg/dL (8.5-10.1); Chloride 110 mmol/L (98-107); Cholesterol 242 mg/dL (200); Creatinine, Serum 0.95 mg/dL (0.70-1.30); EST Glomerular Filtration Rate 82 mL/min (>60); Est Glom Filt Rate - Afr Amer 100 mL/min (>60); Globulin 3.9 g/dL (2.2-4.2); Glucose 138 mg/dL (74-106); High Density Lipoprotein 40 mg/dL; PSA,Total- Diagnostic < 0.01 ng/mL (0.0-4.0); Potassium 4.1 mmol/L (3.5-5.1); Protein, Total 7.4 g/dL (6.4-8.2); Sodium Level 142 mmol/L (136-145); Triglycerides 194 mg/dL; Very Low Density Lipoprotein 39 mg/dL (5-40)
[2023-01-18 16:09] LABS: Vitamin A, Retinol 46.3 ug/dL (22.0-69.5)
== END 2023-01-16 23:59 | disposition home or self-care (01) ==
PROVIDERS: PCP Family Medicine; Referring Provider Urology; Visit Provider Urology
DX: C61 Malignant neoplasm of prostate (principal); T46.6X5A Adverse effect of antihyperlipidemic and antiarteriosclerotic drugs, initial encounter; E78.00 Pure hypercholesterolemia, unspecified; E55.9 Vitamin D deficiency, unspecified
CPT/HCPCS: 36415; 80053; 80061; 82306; 84153; 84590; 85025

== ENCOUNTER → 2023-06-29 | Outpatient (CLI) | payer MEDICARE, SELFPAY ==
[2023-06-29 08:08] LABS: Absolute Lymphocyte Count 2.66 X10^3/uL (0.83-4.51); Absolute Neutrophil Count 3.2 X10^3/uL (2.0-7.7); Basophil# 0.06 X10^3/uL; Basophil% 0.9 % (0-1); Eosinophil# 0.26 X10^3/uL; Eosinophils% 3.7 % (0-5); Hematocrit 47.1 % (40-54); Hemoglobin 15.2 g/dL (13.0-16.5); Lymphocyte # 2.66 X10^3/ul (0.83-4.51); Lymphocyte % 37.7 % (19-41); Mean Corp Hgb Conc 32.3 g/dL (32-36); Mean Corpuscular Hgb 29.2 pg (27.0-32.0); Mean Corpuscular Volume 90.6 fL (80-94); Monocyte# 0.81 X10^3/uL; Monocyte% 11.5 % (0-10); NRBC Flagged by Analyzer 0 % (0-5); Neutrophil # 3.24 X10^3/uL (2.7-7.7); Neutrophil % 45.9 % (47-70); Platelet Count 267 K/mm3 (150-450); RBC Distribution Width CV 12.5 % (11.6-14.6); White Blood Count 7.1 K/mm3 (4.4-11.0)
[2023-06-29 08:33] LABS: ALB/GLOB Ratio 0.8 RATIO (0.9-2.4); AST(SGOT) 20 U/L (15-37); Alanine Aminotransfer ALT/SGPT 41 U/L (16-61); Albumin, Serum 3.3 g/dL (3.2-5.0); Alkaline Phosphatase 90 U/L (45-117); Anion Gap 3 (5-15); BUN 16 mg/dL (7-18); BUN/Creat Ratio 17.3 RATIO (10-20); Calcium,Total 9.2 mg/dL (8.5-10.1); Chloride 108 mmol/L (98-107); Cholesterol 213 mg/dL (200); Creatinine, Serum 0.92 mg/dL (0.70-1.30); EST Glomerular Filtration Rate 84 mL/min (>60); Est Glom Filt Rate - Afr Amer 102 mL/min (>60); Globulin 4.1 g/dL (2.2-4.2); Glucose 180 mg/dL (74-106); High Density Lipoprotein 41 mg/dL; Potassium 4.1 mmol/L (3.5-5.1); Protein, Total 7.4 g/dL (6.4-8.2); Sodium Level 141 mmol/L (136-145); Triglycerides 154 mg/dL; Very Low Density Lipoprotein 31 mg/dL (5-40)
== END | disposition home or self-care (01) ==
PROVIDERS: PCP Family Medicine; Visit Provider Family Medicine
DX: L30.8 Other specified dermatitis (principal); E78.00 Pure hypercholesterolemia, unspecified
CPT/HCPCS: 36415; 80053; 80061; 85025

== ENCOUNTER → 2024-01-26 | Outpatient (CLI) | payer MEDICARE, SELFPAY ==
[2024-01-26 13:07] LABS: PSA,Total- Diagnostic < 0.01 ng/mL (0.0-4.0)
== END | disposition home or self-care (01) ==
LOC: MTLAB 11:11
PROVIDERS: PCP Family Medicine; Referring Provider Urology; Visit Provider Urology
DX: C61 Malignant neoplasm of prostate (principal)
CPT/HCPCS: 36415; 84153

== ENCOUNTER 2024-02-09 22:38 | Emergency (ER) | payer MEDICARE, SELFPAY ==
[2024-02-09 22:39] VITALS: BP 197/85; PULSE 74; RESP 16; TEMP 36.8; O2SAT 97; BMI 26.6
--- NOTE | 2024-02-09 22:45 | EKG12_ITS ---
Test Reason : ABD PAIN Blood Pressure : / mmHG Vent. Rate : 074 BPM Atrial Rate : 074 BPM P-R Int : 168 ms QRS Dur : 098 ms QT Int : 376 ms P-R-T Axes : 059 010 053 degrees QTc Int : 417 ms Normal sinus rhythm Normal ECG Confirmed by CALISTA KRUEGER, RACHNA ([id number]), editorial manager UYEN BENNETT ([id number]) on 02/12/2024 8:17:29 AM Referred By: MYA Confirmed By:RACHNA GRIGSBY MD
--- NOTE | 2024-02-09 22:51 | ED.VIS.GI ---
HPI HPI - GI History of Present Illness Chief Complaint: Abd Pain Narrative Narrative: 78-year-old male past medical history of prostate surgery, denies other significant past medical history presents with abdominal bloating and severe abdominal pain that began around 630 or 7:00 this evening, almost 4 hours ago. He relates history that he ate spicy food around 3 or 4. Everything was fine that he started having this feeling of abdominal bloating. He then started having severe cramping in his mid abdomen. He had an episode like this previously back in November 2 or 3 months ago that resolved on its own. He states when he gets up and walks, that usually improves it. He felt like he had to have a bowel movement and was able to have a few bowel movements but denies any diarrhea. He may be nauseated but has not vomited. He denies any chest pain or diaphoresis. He states it feels like cramping with someone squeezing in his mid abdomen. [facility] Medical History Prostate CA Home Medications ?Medication ?Instructions ?Recorded ?Last Taken ?Type ergocalciferol (vitamin D2) 1,250 1 tab PO DAILY 09/09/20 Unknown History mcg (50,000 unit) capsule multivitamin 1 tab PO DAILY 09/09/20 Unknown History pitavastatin calcium 2 mg tablet 2 mg PO QWEEK 09/09/20 08/31/20 History ciprofloxacin HCl 0.3 % eye drops See Rx Instructions EACH EYE 07/16/22 Unknown Rx .COMPLEX #2.5 mL erythromycin 5 mg/gram (0.5 %) eye 1 applic LEFT EYE QHS 7 days #3.5 07/16/22 Unknown Rx ointment grams Allergy/AdvReac Type Severity Reaction Status Date / Time aspirin Allergy Shortness Verified 02/09/24 22:45 of breath Social History Smoking Status: Never smoker ROS ROS ED ROS Narrative Constitutional: No fever, no chills. HEENT: No sore throat. No neck pain. No loss of vision. No rhinorrhea. Cardiovascular: No chest pain. No palpitations. No pedal edema. Respiratory: No cough, no shortness of breath. Abdominal: Mid abdominal pain. Positive nausea. No vomiting. No diarrhea. Had normal bowel movement prior to arrival. Genitourinary: No dysuria. No hematuria. Musculoskeletal: No myalgias. No arthralgias. Neurologic: No headaches. No dizziness. No lightheadedness. Skin: No rash. No change in color. Psychiatric: No depression. No anxiety. EXAM Physical Exam Narrative Exam Narrative: Afebrile. Vital signs noted. HEENT: Normocephalic. Atraumatic. PERRL, EOMI. Neck soft and supple. No point tenderness or step off. Cardiovascular: Regular rate and rhythm. No murmurs, rubs, or gallops appreciated. Respiratory: No tachypnea. Lungs clear to auscultation bilaterally. Gastrointestinal: Abdomen soft, diffuse tenderness with decreased bowel sounds. No rebound or guarding. Negative Regalado sign, no right upper quadrant tenderness. Neurological: Awake. Alert. Nonfocal, nonlateralizing. Skin: No rash. Normal color. No pallor. Musculoskeletal: No pedal edema. Full range of motion extremities. Const Vital Signs: 02/09/24 22:39 Temperature 98.2 F Temperature Source Temporal Pulse Rate 74 Respiratory Rate 16 Blood Pressure 197/85 H Blood Pressure Mean 122 Pulse Ox 97 Oxygen Delivery Method Room Air MDM MDM MDM Narrative Medical decision making narrative: In the differential diagnosis is abdominal cramping versus bowel obstruction versus pancreatitis. I have low suspicion for cholecystitis or gallbladder pathology based on the location of his pain. EKG had been obtained and interpreted by myself independently as normal sinus rhythm at 74 bpm without ectopy or acute ST changes. No STEMI. I do note elevated systolic blood pressure but this may be secondary to pain. He will be administered morphine and Zofran. CBC, CMP, and lipase will be obtained as well as urinalysis. I do feel he merits CT imaging with IV contrast to look for bowel obstruction or colitis. I reviewed the patient's laboratory work and he has normal white count of 7.4, hemoglobin normal at 15.9, hematocrit 47.8, platelet count normal at 299. Electrolyte panel is grossly unremarkable, sodium of 139 and potassium 3.7 with chloride 104. BUN is normal at 15 with creatinine 1.10. LFTs are grossly unremarkable with an AST of 21 and an ALT of 41. Lipase is normal at 68 so I doubt pancreatitis. Repeat examination at approximately 2325 shows that his pain is mildly improving. His abdomen remains soft. His CT results are currently pending. At this point in time, patient will be signed out to the overnight physician, Dr. Feliciano Rothman to check the CT scan results and make final disposition after reassessment of the patient. He is in stable condition. Lab Data Attestation: I reviewed the patient's lab results. Labs: Laboratory Results - last 24 hr 02/09/24 22:44 WBC 7.4 RBC 5.36 Hgb 15.9 Hct 47.8 MCV 89.2 MCH 29.7 MCHC 33.3 RDW Std Deviation 40.9 RDW Coeff of Av 12.4 Plt Count 299 MPV 8.9 Immature Gran % (Auto) 0.300 Neut % (Auto) 40.8 L Lymph % (Auto) 41.9 H [place] % (Auto) 11.8 H Eos % (Auto) 4.1 Baso % (Auto) 1.1 H Absolute Neuts (auto) 3.0 Absolute Lymphs (auto) 3.08 Nucleated RBC % 0 Sodium 139 Potassium 3.7 Chloride 104 Carbon Dioxide 27.0 Anion Gap 8 BUN 15 Creatinine 1.10 Estim Creat Clear Calc 53.41 Est GFR (MDRD) Af Amer 84 Est GFR (MDRD) Non-Af 69 BUN/Creatinine Ratio 13.6 Glucose 225 H Calcium 9.3 Total Bilirubin 0.50 AST 21 ALT 41 Alkaline Phosphatase 75 Total Protein 7.9 Albumin 3.7 Globulin 4.2 Albumin/Globulin Ratio 0.9 Lipase 68 Discharge Plan Triage Chief Complaint: Abd Pain ED Provider: Tarun Santo Dx/Rx/DC Orders Prescriptions: No Action multivitamin 1 EACH tablet 1 tab PO DAILY ergocalciferol (vitamin D2) 50,000 UNIT capsule 1 tab PO DAILY pitavastatin calcium 2 MG tablet 2 mg PO QWEEK erythromycin 5 mg/gram (0.5 %) ointment 1 applic LEFT EYE QHS 7 Days Qty: 3.5 0RF ciprofloxacin HCl 0.3 % drops See Rx Instructions .ROUTE .COMPLEX Qty: 2.5 0RF Rx Instructions: put 1-2 drps in affected eye(s) every 2hr up to 8 times/day x2days; then 4 times/day x5days Primary Care Provider: Brian Beard Referrals: Brian Beard MD [Primary Care Provider] - Print Language: Greek
[2024-02-09] MEDS: 0.9% Normal Saline (1000mL) 1,000 ML 999 ML IV (22:58)
[2024-02-09] MEDS: Ondansetron 4 MG/2 ML Vial IV (22:59)
[2024-02-09] MEDS: Morphine 4 MG/ML Syringe IV (22:59)
[2024-02-09 23:00] LABS: Absolute Lymphocyte Count 3.08 X10^3/uL (0.83-4.51); Basophil# 0.08 X10^3/uL; Basophil% 1.1 % (0-1); Eosinophils% 4.1 % (0-5); Hematocrit 47.8 % (40-54); Hemoglobin 15.9 g/dL (13.0-16.5); Lymphocyte # 3.08 X10^3/ul (0.83-4.51); Lymphocyte % 41.9 % (19-41); Mean Corp Hgb Conc 33.3 g/dL (32-36); Mean Corpuscular Hgb 29.7 pg (27.0-32.0); Mean Corpuscular Volume 89.2 fL (80-94); Mean Platelet Vol. 8.9 fl (6.2-12.0); Monocyte# 0.87 X10^3/uL; Monocyte% 11.8 % (0-10); NRBC Flagged by Analyzer 0 % (0-5); Neutrophil % 40.8 % (47-70); Platelet Count 299 K/mm3 (150-450); RBC Distribution Width CV 12.4 % (11.6-14.6); RBC Distribution Width SD 40.9 fl (35.1-43.9); Red Blood Count 5.36 M/mm3 (4.6-6.2); White Blood Count 7.4 K/mm3 (4.4-11.0)
[2024-02-09 23:15] LABS: ALB/GLOB Ratio 0.9 RATIO (0.9-2.4); AST(SGOT) 21 U/L (15-37); Alanine Aminotransfer ALT/SGPT 41 U/L (16-61); Albumin, Serum 3.7 g/dL (3.2-5.0); Alkaline Phosphatase 75 U/L (45-117); Anion Gap 8 (5-15); BUN 15 mg/dL (7-18); BUN/Creat Ratio 13.6 RATIO (10-20); Calcium,Total 9.3 mg/dL (8.5-10.1); Chloride 104 mmol/L (98-107); EST Glomerular Filtration Rate 69 mL/min (>60); Est Glom Filt Rate - Afr Amer 84 mL/min (>60); Estimated Creatinine Clearance 53.41 ml/min; Globulin 4.2 g/dL (2.2-4.2); Glucose 225 mg/dL (74-106); Lipase 68 U/L (13-75); Potassium 3.7 mmol/L (3.5-5.1); Protein, Total 7.9 g/dL (6.4-8.2); Sodium Level 139 mmol/L (136-145)
--- NOTE | 2024-02-09 23:20 | CT_ITS ---
INDICATION: abdominal pain EXAMINATION: CT ABDOMEN AND PELVIS WITH CONTRAST - CT Abdomen And Pelvis W/ Contrast Injection TECHNIQUE: Helically acquired images were obtained of the abdomen and pelvis following IV contrast. A radiation dose optimization technique was used for this scan. IV Contrast dosage and agent: July 15, 2011 Oral contrast: None. COMPARISON: None. FINDINGS: LOWER CHEST: Mild dependent atelectasis. No cardiomegaly or pericardial effusion. LIVER: Homogeneous. No focal mass. GALLBLADDER AND BILIARY TREE: Distended gallbladder with small gallbladder neck stones. Mild wall thickening at the anterior fundus, axial image 38. No gross surrounding inflammation. . No intra- or extrahepatic biliary ductal dilation. PANCREAS: No focal cystic or solid mass. SPLEEN: Normal size without focal cystic or solid mass. ADRENAL GLANDS: 8 mm nodule, axial image 36. Normal right adrenal. KIDNEYS AND URETERS: Normal renal size and position. No hydronephrosis. PERITONEUM: No ascites or free air. No other fluid collection. BOWEL: No acute gastric finding. No small bowel distention or focal wall thickening. Normal appendix. Distal colonic diverticulosis. Mild wall thickening along the sigmoid colon, without discrete inflamed diverticulum. LYMPH NODES: No enlarged mesenteric or retroperitoneal lymph nodes. VESSELS: Aorta is non-dilated. URINARY BLADDER: Bladder is mildly distended without wall thickening or surrounding inflammation.. REPRODUCTIVE ORGANS: Small right hydrocele . ABDOMINAL WALL: No discrete abdominal or pelvic wall hernia. BONES: No lytic or blastic abnormality. CT/Abdomen/Pelvis W IV Cont ONLY IMPRESSION: Distended gallbladder with gallstones and minimal wall thickening. Nuclear medicine hepatobiliary scan could best further evaluate for cholecystitis as clinically indicated. Colonic diverticulosis with nonspecific mild diffuse wall thickening of the sigmoid colon. No focal inflamed diverticulum is appreciated. Differential includes mild acute uncomplicated diverticulitis, infectious colitis, or pseudowall thickening from lack of distention. Bladder is mildly distended. Correlate for urinary retention. Small right hydrocele. Electronically Signed: Nikita Womack MD at 0:21 EDT ,
[2024-02-09 23:26] LABS: Bacteria 0 SEEN /hpf (None Seen); Mucous, Urine 0 SEEN /hpf (<or=2+); Red Blood Cells-Urine 0 SEEN /hpf (0-5); Squamous Epithelial Cells - UA 0 SEEN /hpf (0-5); White Blood Cells 0 SEEN /hpf (0-5)
[2024-02-09 23:33] LABS: Color, Urine Yellow (Yellow); Glucose, Dipstick 250 mg/dl (Normal); Ketone-Dipstick Negative (Negative); Leukocyte Esterase-Dipstick Negative /ul (Negative); Nitrite-Dipstick Negative (Negative); Occult Blood-Urine Negative /ul (Negative); Protein-Dipstick Negative (Negative); Urine Bilirubin Dipstick Negative (Negative); Urine Clarity Clear (Clear); Urine Urobilinogen Normal (Normal)
[2024-02-10 00:38] VITALS: BP 168/72; PULSE 58; RESP 20; TEMP 36.7; O2SAT 97
[2024-02-10] MEDS: Mag Hydrox/Al Hydrox/Simeth 30 ML UDC PO (01:36)
[2024-02-10] MEDS: Pantoprazole Sodium 40 MG in 0.9% Normal Saline (100mL MB+) 100 ML 330 MG IV (01:48)
[2024-02-10 02:00] VITALS: BP 156/75; PULSE 73; RESP 16; O2SAT 97
[2024-02-10 03:30] VITALS: BP 156/82; PULSE 80; RESP 19; TEMP 36.9; O2SAT 99
== END 2024-02-10 03:45 | disposition home or self-care (01) ==
PROVIDERS: Emergency Provider Emergency Medicine; PCP Family Medicine; Visit Provider Emergency Medicine
DX: R10.9 Unspecified abdominal pain (principal)
CPT/HCPCS: 74177; 80053; 81001; 83690; 85025; 93005; 96361; 96365; 96375; 99283; A4216; J2405

== ENCOUNTER 2024-03-15 05:51 | Day surgery (SDC) | payer MEDICARE, SELFPAY ==
[2024-03-15] VITALS (12 sets, daily range): BP systolic 123–163; BP diastolic 66–90; PULSE 68–85; RESP 16; TEMP 36–36.6; O2SAT 92–100; BMI 25.7
--- NOTE | 2024-03-15 06:00 | EKG12_ITS ---
Test Reason : PRE OP Blood Pressure : / mmHG Vent. Rate : 065 BPM Atrial Rate : 065 BPM P-R Int : 172 ms QRS Dur : 098 ms QT Int : 396 ms P-R-T Axes : 040 -16 042 degrees QTc Int : 411 ms Normal sinus rhythm Cannot rule out olf inferior wall ME Confirmed by Anant Eid ([id number]), non linear editor GA ESPINOZA ([id number]) on 03/19/2024 8:07:42 AM Referred By: Yaakov Gonzales Confirmed By:Anant Eid
[2024-03-15] MEDS: Lactated Ringers 1,000 ML 15 ML IV ×2 (06:15→09:48)
--- NOTE | 2024-03-15 06:30 | PCM.HP.BLA ---
History and Physical Date of Admission: 03/15/24 Intake Vital Signs 02/08/2422:39 02/28/2408:26 Height 5 ft 7 in 5 ft 7 in Weight: 166 lb 2 oz BMI 26.0 BP 124/73 H Blood Pressure Location Rt brachial Position Sitting Respiration 18 Pulse 69 Pulse Source Monitor Temp 97.2 F L Temp Source Temporal Pulse Oximetry (%) 97 Oxygen Delivery Method room air Intake Visit Reasons: GALLSTONE, ER FU Chief Complaint: gallstone ER f/u Is patient in pain?: No Allergies aspirin Allergy (Verified 02/28/24 08:27) Shortness of breath Medications ?Medication ?Instructions ?Recorded ?Confirmed ?Type pantoprazole 20 mg tablet,delayed 20 mg PO BID 14 days #28 tabs 02/10/24 Rx release (Protonix) PFSH Medical History Prostate CA Social History (Updated 02/28/24 @ 08:26 by Edel Barrow LPN) Smoking Status: Never smoker alcohol intake: never substance use type: does not use HPI HPI HPI: Patient is a 79-year-old male here for gallbladder disease. The patient was recently in the emergency room with a right upper quadrant attack and was found to have gallstones in the neck of the gallbladder with some thickening. The patient was started on a PPI. He reports not much of a difference. He says when these attacks happen they last 3 to 4 hours and radiate to the back. He denies nausea or vomiting currently and is not having any pain at the current time. ROS General General: No weight change, appetite, fatigue, colon cancer, breast cancer or weakness HEENT HEENT: No difficulty swallowing, eye injury, eye surgery, swollen glands or hoarseness Endo Endocrine: No thyroid disease, diabetes mellitus, thyroid cancer, Hair loss, heat intolerance or cold intolerance Skin Skin: No rash or changing moles Musc Musculoskeletal: Yes arthritis; No back problems, rheumatoid arthritis, gout or joint pain Cardio Cardiovascular: No murmur, pacemaker, heart disease, atrial fibrillation, high blood pressure, heart attack, heart stent, palpitations, shortness of breat with exertion or chest pain Psych Psychiatric: No depression, anxiety or hearing voices Resp Respiratory: No shortness of breath, No sleep apnea, No cough, No COPD, No asthma, No emphysema and No wheezing Gastro Gastrointestinal: Yes abdominal pain, No nausea or vomiting, No diarrhea, No constipation, No blood in stool, No acid reflux, No hemorrhoids, No ulcers, No gallbladder problem and No black,tarry stools Rolando Hematologic: No blood thinners, No blood disorders, No bleeding, No anemia and No blood clots Neuro Neurologic: No numbness, No tingling and No weakness Exam Const General: cooperative Orientation: alert and oriented x3 HENMT Head: normal to inspection Neck Neck: normal visual inspection and full ROM Chest Chest palpation & inspection: normal inspection of the chest Resp Effort & Inspection: normal respiratory effort Auscultation: clear to auscultation bilaterally Cardio Rate: regular rate Rhythm: regular rhythm GI Inspection: non-distended Palpation: soft and nontender Skin General: no rashes or lesions noted Neuro General: patient alert and patient oriented x3 Extrem General: full ROM Psych Appearance: grossly normal Mental Status: mental status grossly normal Assessment and Plan Assessment and Plan (1) Cholelithiasis: Status: Acute Qualifiers: Cholelithiasis location: gallbladder Cholecystitis presence: without cholecystitis Biliary obstruction: without biliary obstruction Qualified Code(s): K80.20 - Calculus of gallbladder without cholecystitis without obstruction Plan: The patient was recently in the emergency room and had CT that revealed small gallstones in the neck of the gallbladder with dilation and some possible thickening. Her white count was normal at that time and he was sent here for follow-up. He does say that he has right upper quadrant pain that radiates to the back that happens with spicy meals. He also said it happened recently after eating sausage. I discussed the procedure in detail with the patient. I discussed the risks, benefits, and alternatives of the procedure. I discussed the risks including but not limited to bleeding, infection, injury to surrounding organs such as the liver, bile duct, bowels. I did discuss the possibility of having to convert to an open procedure as well as the possibility that if any injuries occurred this may necessitate further surgery at a tertiary care center. Yaakov Gonzales MD Pager: [facility] [address] [place] [address], [address] [place] [address] Office: I have examined the patient and the H&P has been reviewed. There are no clinical changes since date of exam.
--- NOTE | 2024-03-15 07:05 | PRE.ANES_ITS ---
ASA Classification* ASA Classification ASA Classification: 2 Assessment & Plan Anesthesia* Anesthesia Assessment Anesthesia Assessment: Discussed sedation and/or anesthesia options, risks, benefits, and alternatives with patient/parents/legal guardian/POA. Questions invited. The patient/parents/legal guardian/POA seems to understand and agrees to proceed with anesthesia plan. Reviewed the physical assessment, medical history, allergy history and patient home medications list prior to surgery/procedure/anesthetic and documented any changes. Performed airway and anesthesia risk assessments. Anesthesia Type Anesthesia Type: General (see written pre anesthesia record for full assessment) Anesthesia Focused Assessment* Temperature: 97.9 F Pulse Rate: 68 Blood Pressure: 123/73 Respiratory Rate: 16 Pulse Ox: 96 Airway Assessment Mouth opens: >3 cm Mallampati Score: II Focused Labs Anesthesia Preop lab: CBC WBC 7.4 K/mm3 (4.4-11.0) 02/09/24 22:44 RBC 5.36 M/mm3 (4.6-6.2) 02/09/24 22:44 Hgb 15.9 g/dL (13.0-16.5) 02/09/24 22:44 Hct 47.8 % (40-54) 02/09/24 22:44 Plt Count 299 K/mm3 (150-450) 02/09/24 22:44 CHEMISTRY Potassium 3.7 mmol/L (3.5-5.1) 02/09/24 22:44 Sodium 139 mmol/L (136-145) 02/09/24 22:44 BUN 15 mg/dL (7-18) 02/09/24 22:44 Creatinine 1.10 mg/dL (0.70-1.30) 02/09/24 22:44 Glucose 225 mg/dL (74-106) H 02/09/24 22:44 TSH 1.62 uIU/mL (0.358-3.74) 07/11/16 10:49 COAG Pre-Assessment Diagnosis/Proposed Procedure Planned Operative Procedure(s): LAP CHOLEY WITH GRAMS Anesthesia History 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 When Was Last Pacemaker Check QUESTION #4 FULL TEXT: You/Your Family Experience fever (hyperthermia) with Anesthesia Last Oral Intake Last Oral intake: Last Oral Intake NPO since 22:00 03/15/24 06:09 Meds taken in AM with sips of water? 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 Female No 03/05/24 14:14 HX of Motion Sickness No 03/05/24 14:14 HX of N/V After Surgery No 03/05/24 14:14 Non-Smoker Yes 03/05/24 14:14 Duration of Surgery greater No 03/05/24 14:14 than 60 minutes Number of Risk Factors 1 03/05/24 14:14 PONV Score Low Risk 03/05/24 14:14 Height & Weight Height & Weight: Anesthesia: Height & Weight Height 5 ft 7 in 03/15/24 06:09 Weight: 74.4 kg 03/15/24 06:09 Body Mass Index (BMI) 25.7 03/15/24 06:09 Respiratory Assessment Respiratory Assessment - extrusion press supervisor: Respiratory Tract Infection Hx - extrusion press supervisor Hx Respiratory Tract Infection No 03/05/24 14:14 STOP Sleep Apnea STOP Sleep Apnea - extrusion press supervisor: STOP Sleep Apnea - extrusion press supervisor Hx Hypertension No 03/05/24 14:14 Hx Sleep Apnea No 03/05/24 14:14 CPAP BIPAP Do you snore loudly (louder Yes 03/05/24 14:14 than talking or can be heard Do you often feel tired/ No 03/05/24 14:14 fatigued/ sleepy during daytime? Has anyone observed you stop No 03/05/24 14:14 breathing during sleep? STOP Results Negative 03/05/24 14:14 QUESTION #5 FULL TEXT : Do you snore loudly (louder than talking or can be heard through closed doors)? 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 Specify any problems Hx of Preganancy in last 3 N/A 03/05/24 14:14 Months Nurse Filling Out Transfusion SFRANTZ 03/05/24 14:14 & Questions: Date: 03/05/24 03/05/24 14:14 Time: 14:18 03/05/24 14:14 Patient unable to answer at this time (ie. confused, unrespo /Reproduction History /Reproductive History - extrusion press supervisor: /Reproductive Hx- extrusion press supervisor Hx Now No 03/05/24 14:14 Gestational Age (in weeks): EDC: Hx Hx Para Hx Section SAB No 03/05/24 14:14 Active Medications Active Medications: Current Medications Generic Name Dose Route Start Last Admin Trade Name Freq PRN Reason Stop Dose Admin Cefotetan Disodium 2 gm/ 100 mls @ 200 mls/hr 03/15/24 07:30 Sodium Chloride IV 03/15/24 07:59 PREOP ONE Lactated Ringer's 1,000 mls @ 15 mls/hr 03/15/24 06:15 03/15/24 06:15 IV 15 mls/hr .Q48H BUD Administration PFSH Medical History Wears glasses History of Clostridium difficile infection Cancer Arthritis High cholesterol Injury of head and neck Heartburn Non-smoker History of mastoiditis Prostate CA Home Medications ?Medication ?Instructions ?Recorded ?Last Taken ?Type cholecalciferol (vitamin D3) 25 1,000 unit PO DAILY 03/05/24 Unknown History mcg (1,000 unit) tablet (Vitamin D3) multivitamin (Daily Multi-Vitamin 1 tab PO DAILY 03/05/24 Unknown History tablet) omega-3 fatty acids 500 mg capsule 3,000 mg PO DAILY 03/05/24 Unknown History pantoprazole 20 mg tablet,delayed 20 mg PO DAILY 03/05/24 Unknown History release (Protonix) Allergy/AdvReac Type Severity Reaction Status Date / Time aspirin Allergy Shortness Verified 03/15/24 06:08 of breath Surgical History Hx of right cataract extraction Hx of left cataract extraction Hx of esophagogastroduodenoscopy Hx of radical prostatectomy Social History Smoking Status: Never smoker alcohol intake: never substance use type: does not use Review of Systems (Anesthesia) ROS Narrative System reviewed and no additional complaints, except as documented.
[2024-03-15] MEDS: Bupivacaine 0.25% 30 ML Vial (07:16)
[2024-03-15] MEDS: Cefotetan 2 GM in 0.9% NS 100 ML IV (07:21)
--- NOTE | 2024-03-15 07:30 | GALL_PTH ---
PATIENT: MOMO JEFFERSON LOC: [facility] [place] U#:[id number] AGE/SX: 79/M ROOM: RE03/15/[address]: Dr. Yaakov Gonzales MD : 1945 BED: DIS: 03/15/2024 SPEC #: [id number] RECD: 03/15/24 10:04 STATUS: ABE VELAZQUEZBrendon #: [id number] KEYONNA: 03/15/24 07:[address]: Yaakov Gonzales DEPT: SURGICAL PATHOLOGY RECD BY: Mauri Rodriguez ENTERED: 03/15/24 12:21 SP TYPE: ABHINAV CHAVEZ DR: Dr. Brian Beard MD Tissues: Gallbladder, NOS Procedures: Surgery Specimen Level III HEADER OPERATION: Laparoscopic, cholecystectomy with IOC PRE-OP DIAGNOSIS: Cholelithiasis TISSUE SUBMITTED: Gallbladder and contents MICROSCOPIC DIAGNOSIS Gallbladder and contents, cholecystectomy: Chronic cholecystitis and cholelithiasis. SJ/mr 03/18/2024 MICROSCOPIC DESCRIPTION Slides are reviewed. GROSS DESCRIPTION Received is one container labeled with the patient's name and designated gallbladder. The specimen consists of a gallbladder measuring 8.5 cm in length and up to 2.5 cm in diameter. The external surface is pink-rothman, smooth and glistening for the most part. Focally it is granular, hemorrhagic and contains cautery artifact. The gallbladder contains green-yellow mucoid bile and one elsrbxef-elcaiq-kyajj to ovoid stone measuring in aggregate 0.7 cm in greatest dimension. The mucosa is bile-stained and without any mass lesions. The gallbladder wall measures up to 0.2 cm in thickness. Human Resources Operations Specialist sections from the gallbladder and the cystic duct are submitted in one cassette. / SJ: 03/15/2024 TC:3 [facility]: [id number]
--- NOTE | 2024-03-15 07:40 | RAD_ITS ---
CLINICAL HISTORY: Male, 79 years old. Cholecystitis PROCEDURE: CHOLANGIOGRAM - Intraop Cholangiogram CONSENT: Informed consent obtained SEDATION: General FLUOROSCOPY TIME (if supplied): (10) seconds, dose of 5.81mGy, one cine loop of 66 fluoroscopic images Placement of the catheter and the procedure were performed by: Yaakov Gonzales MD Fluoroscopy was provided by Navjot Ramey, who was present in the room time of the procedure. TECHNIQUE: (All elements of maximal sterile barrier technique followed, including US elements as applicable) After trauma was removed, the cystic duct was cannulized and contrast injected. The biliary tree distends normally. No evidence of filling defect to suspect a retained stone. Normal flow of contrast into the duodenum is noted. No extravasation of contrast to suspect a bile leak. RAD/Cholangiogram/ O R,Initial IMPRESSION: Normal intraoperative cholangiogram Electronically Signed: Agustín Mauricio MD at 9:08 EDT ,
--- NOTE | 2024-03-15 08:30 | PCM.POST.ANE ---
Anesthesia: Postop Eval I Current Vital Signs Temperature: 97 F Pulse Rate: 78 Blood Pressure: 163/74 Respiratory Rate: 16 Pulse Ox: 100 Oxygen Delivery Method: Simple Mask Oxygen Flow Rate (L/min): 6 Assessment Airway patent: Yes Spontaneous unlabored respirations: Yes Mental status: Awake and Calm nausea: No Vomiting: No Anesthesia Complication: No Fluid Hydration Crystalloid volume administer (ml): 700 Total IV fluid infused: 700 Progress Note Anesthesia document: Postop Eval 1 completed: Yes
--- NOTE | 2024-03-15 08:38 | RAD_ITS ---
STUDY: X-RAY CHEST REASON FOR EXAM: Male, 79 years old. post op, possible pneumothorax right -- in pacu TECHNIQUE: Single AP portable view of the chest. COMPARISON: None. FINDINGS: The lungs are clear and expanded. Slightly elevated right hemidiaphragm. Normal size heart. Normal mediastinum and maryam. Normal visualized pulmonary arteries. Normal visualized aortic arch and descending thoracic aorta. Normal visualized thoracic spine. Normal visualized ribs, clavicles, and shoulders. There is no demonstrated abnormality of the visualized soft tissue structures of the upper abdomen. RAD/Chest 1 View (Portable) IMPRESSION: No active disease. Electronically Signed: Cirilo Mejía MD at 8:51 EDT ,
--- NOTE | 2024-03-15 08:45 | PCM.OPRPT ---
Report of Operation Date of Procedure: 03/15/24 Pre-Operative Diagnosis: Biliary colic and cholelithiasis Post-Operative Diagnosis: Same Surgery/Procedure Performed:: Laparoscopic cholecystectomy with cholangiograms Type of Anesthesia: General/Regional Specimen's removed: Gallbladder Estimated Blood Loss (mL): 10 Description of Procedure: After obtaining informed consent patient was brought back to the operating room. General anesthesia was induced. The abdomen was prepped and draped in usual sterile fashion. A small midline incision was made superior to the umbilicus and deepened to the level of fascia. The fascia was elevated and incised. Next the peritoneum was elevated and incised in the same fashion. Finger sweep was performed and the Alejandro trocar was placed into the abdomen. The balloon was inflated. The abdomen was inflated to 15 mmHg. Next a camera was introduced into the abdomen and the abdomen was inspected. Next under direct visualization three 5-mm ports were placed one subxiphoid and 2 subcostal. Next the gallbladder was elevated and retracted toward the right shoulder. The peritoneum was stripped from the gallbladder. The infundibulum was located and retracted laterally. Next the triangle of Calot was dissected and the cystic duct and cystic artery were identified. Cholangiograms were performed. The Alcaraz clamp was used to clamp across the infundibulum and the catheter needle was inserted into the gallbladder. Under fluoroscopy contrast was instilled into the gallbladder and the common duct, cystic duct as well as proximal hepatic ducts were identified. There was good filling of the duodenum. There were no filling defects noted in the common bile duct. The clamp was removed as well as the needle and the infundibulum was grasped once more. Three hemolock clips were placed across the cystic duct. The cystic duct was then divided leaving 2 clips on the stump. The cystic artery was clipped and divided in the same fashion. The hook cautery was then used to take the gallbladder off of the gallbladder bed. Hemostasis was obtained. Gallbladder fossa was irrigated and no active bleeding or bile leakage was noted. Next the camera was introduced in the subxiphoid port. An Endopouch bag was placed through the umbilical port and the gallbladder was placed into it. The gallbladder was then removed through the umbilical incision. The camera was then reinserted through the umbilical port. The gallbladder fossa was inspected once more and noted to be hemostatic with no leaking bile. The abdomen was suctioned dry. The 5 mm ports were removed under direct visualization. The umbilical port was then removed and the air was removed from the abdomen. Next using an 0 Vicryl suture the umbilical fascia was closed in a [id number] fashion. The umbilical port site was irrigated local anesthetic was administered to all the incisions. All the incisions were closed with interrupted subcuticular 4-0 Monocryl sutures followed by Steri-Strips and dressings. The patient was awoken and taken to PACU in stable condition. Admit VTE Documentation VTE Mechan Device Prophylaxis: SCD's
--- NOTE | 2024-03-15 08:47 | DCINST_ITS ---
Discharge Instructions Procedure Gallbladder Diet Discharge Diet: Light diet - advance as tolerated Activity Discharge Activity: May Not Drive (for 2-3 days or while taking narcotic pain medications.) and - (Do not drive, work heavy equipment or sign legal documents for 24 hours.) May shower in (days): 1 Lifting Restrictions: 20 lbs for 2 weeks Additional Activity Instructions:: Pain medication may cause nausea. You should typically eat light foods as you take your pain medications. Pain medication may also cause constipation. If this is a problem for you, please discuss with your doctor. Take ibuprofen and Tylenol alternating for pain control, oxycodone for breakthrough pain. Dressing / Incision Call your doctor if your incision/area has: Continuous Slow Oozing, Sudden Increased Bleeding, Increased Pain/ Swelling, Increased Redness and Foul Smelling Discharge Call your doctor if you observe: Fever of 101 or Higher Suture Line Care: Avoid Pulling/Pushing and Avoid Pinching/Bending Remove Dressing in: 2 days Additional Dressing/Incision Instructions:: Leave operative bandaids on for 2 days. Remove Steri-Strips in 7 to 10 days. Okay to shower over both dressings Follow Up Care Please Follow Up With: Yaakov Gonzales MD When: Please call to schedule 2 week follow up appointment. [phone] Test Results: Test results from this visit will be discussed in further detail at your follow- up appointment, if applicable. Discharge Plan Admission Attending Provider: Yaakov Gonzales Primary Care Provider: Brian Beard Instructions Print Language: Greek Discharge Orders/Prescriptions Prescriptions: New oxycodone 5 mg Tablet 5 - 10 mg PO Q4H PRN PRN (Reason: Pain Score 4-10) 5 Days Qty: 20 0RF No Action multivitamin [Daily Multi-Vitamin] Tablet 1 tab PO DAILY omega-3 fatty acids 500 mg capsule 3,000 mg PO DAILY cholecalciferol (vitamin D3) [Vitamin D3] 25 mcg (1,000 unit) tablet 1,000 unit PO DAILY pantoprazole [Protonix] 20 mg tablet,delayed release (DR/EC) 20 mg PO DAILY Referrals / Follow Up: Brian Beard MD [Primary Care Provider] - Disposition Disposition (needs filled in before D/C Order can be placed): Home, Self Care
[2024-03-15] MEDS: oxyCODONE 5 MG Tablet PO (10:22)
--- NOTE | 2024-03-15 13:10 | POSTOPAN2_ITS ---
Anesthesia Postop Eval I Sum Postop Eval Completion status Anesthesia document: Postop Eval 1 completed: Yes Anesthesia Postop Eval I Summary Anesthesia Postop Eval I Summary: Anesthesia Postop Eval I: Assessment Summary Airway patent Yes 03/15/24 08:31 FRONT [email or web address] [email or web address] Spontaneous unlabored Yes 03/15/24 08:31 FRONT DESK [email or web address].[email or web address] respirations Mental status Awake,Calm 03/15/24 08:31 FRONT DESK [email or web address].[email or web address] nausea No 03/15/24 08:31 FRONT DESK [email or web address].[email or web address] Vomiting No 03/15/24 08:31 FRONT DESK [email or web address].[email or web address] Anesthesia Postop Eval I: Fluid Summary Crystalloid volume administer 700 03/15/24 08:31 FRONT DESK [email or web address].[email or web address] (ml) Colloids volume administered ( ml) Blood Product volume administered (ml) Total IV fluid infused 700 03/15/24 08:31 FRONT DESK [email or web address].[email or web address] Anesthesia Postop Eval I: Summary Notes Anesthesia Complication No 03/15/24 08:31 FRONT DESK [email or web address].NEVA Anesthesia Complication Comment: Post-operative progress note Anesthesia: Postop Eval II Evaluation Mental status: Awake and Calm Pain Level: 1 nausea: No Vomiting: No Complications Anesthesia Complication: No
--- NOTE | 2024-03-15 13:10 | PCM.POSTANE2 ---
Anesthesia Postop Eval I Sum Postop Eval Completion status Anesthesia document: Postop Eval 1 completed: Yes Anesthesia Postop Eval I Summary Anesthesia Postop Eval I Summary: Anesthesia Postop Eval I: Assessment Summary Airway patent Yes 03/15/24 08:31 [email or web address] Spontaneous unlabored Yes 03/15/24 08:31 [email or web address] respirations Mental status Awake,Calm 03/15/24 08:31 [email or web address] nausea No 03/15/24 08:31 [email or web address].[email or web address] Vomiting No 03/15/24 08:31 [email or web address].[email or web address] Anesthesia Postop Eval I: Fluid Summary Crystalloid volume administer 700 03/15/24 08:31 [email or web address] (ml) Colloids volume administered ( ml) Blood Product volume administered (ml) Total IV fluid infused 700 03/15/24 08:31 [email or web address].[email or web address] Anesthesia Postop Eval I: Summary Notes Anesthesia Complication No 03/15/24 08:31 [email or web address] Anesthesia Complication Comment: Post-operative progress note Anesthesia: Postop Eval II Evaluation Mental status: Awake and Calm Pain Level: 1 nausea: No Vomiting: No Complications Anesthesia Complication: No
== END 2024-03-15 11:08 | disposition home or self-care (01) ==
LOC: SDC 05:51 → AC 05:55
PROVIDERS: PCP Family Medicine; Referring Provider Surgery; Visit Provider Surgery
PROC: (CPT 47610; principal; 2024-03-15 07:10)
DX: K80.10 Calculus of gallbladder with chronic cholecystitis without obstruction (principal); E78.00 Pure hypercholesterolemia, unspecified; Z79.899 Other long term (current) drug therapy
CPT/HCPCS: 47563; 00790; 71045; 74300; 76000; 88304; 93005; J7120; J2405

== ENCOUNTER 2024-03-28 09:00 | Outpatient (RCR) | payer MEDICARE, SELFPAY ==
--- NOTE | 2024-02-13 08:49 | HP.OTEVAL_ITS ---
Patient's Visit Information Visit Information Visit Information: MOMO JEFFERSON is a 78 year old M, referred to Occupational Therapy by Dr. Brian Beard MD, with a diagnosis of contracture of R hand PIP joint. Date of Evaluation: 02/13/24 Occupational Therapist: Loida Tran Subjective Subjective: This 78 year old male referred to OT due to R hand D3 flexion at PIP joint. Per pt finger started to bend a little within the last few years and just recently has gotten worse. denies pain at rest however does have tenderness if attempts to straighten out with opposite hand. pt is able to passively entend joint however unable to actively extend joint. pt is R hand dominant. reports increased pain when arthritis acts up. pt is active and performs all self care and house hold duties. pt is active in hobbies such as pickle ball. Objective Objective/Observation: Pt presents with R dominant hand D3 PIP lack of extension -25 degrees. all other joints within normal range. able to passively straighten R D3 PIP to approx -15 degrees. ROM Shoulder: wfl Elbow: wfl Forearm: wfl Wrist: wfl CMC: wfl MP: wfl IP: wfl Radial Abduction: wfl Palmar Abduction: wfl Opposition: wfl MP: wfl PIP: R D3 -25/63 DIP: wfl Strength Agronomy Research Manager: L and R 65 pounds Lateral Pinch: L 8 pounds R hand 10 pounds Tripod Pinch: L 8 pounds R hand 8 pounds Intrinsics: wfl Edema Other: none Sensation Sensation Comments: denies numbness or tingling In-Hand Manipulation Finger to Palm Translation: Normal - Right and Normal - Left Palm to Finger Translation: Normal - Right and Normal - Left Quick DASH-Disab of Arm,Shoulder& Hand Quick DASH Score: 2.2725 Goals Goal:Full use of affected hand in daily activities including work: Yes Other Goal: pt will improve R hand PIP extension to -5 or less in order to maximize functional use of hand during day to day functional activities pt will verbalize/ demonstrate 100% accuracy in proper joint protection and positioning during day to day activities pt will demonstrate 100% adherence to orthosis as needed for R hand D3 in order to promote extension pt will improve quick dash score to 11 in order to improve functional use of R hand pt will demonstrate 100% accuracy in HEP by third session Rehabilitation Rehabilitation Potential: Good Anticipated Interventions Anticipated Interventions: A/AAROM/PROM, Massage, Modalities, Orthoses, Joint Protection/Energy Conservation, Education re assistive Equipment, Education re Diagnosis and Home Program Visit Plan Frequency: 2x /Week Duration: 6 Weeks General Plan: This 78 year old male presents this date order from doctor for OT due to R dominant hand D3 PIP lack of extension at rest -25 with passive movement -15. pt states he mostly notices when attempting to release items and hand sticks onto object impacting daily function. denies pain this date however states occ tender when passively moving or when having arthritic flare up. TEXT: Thank you for the opportunity to evaluate your patient. For Medicare and Medicare HMO plans, please review the plan of care and approve it. It will need to be FAXED BACK to us at [phone] for Medicare purposes. Please let me know if there are questions or concerns regarding this plan of care. Physician Signature: Date:
--- NOTE | 2024-03-28 09:30 | OTREVAL_ITS ---
Re-Evaluation Intro: Dr. Brian Beard MD, It has been my pleasure to treat MOMO JEFFERSON over the last 3 visits for contracture of R hand PIP joint. Please see the progress note below for an update on the occupational therapy plan of care! Objective Objective/Function: at rest at -28 degree extension with PROM able to get to -20 degrees extension pt reports not wearing drop out orthosis as much as he probably should have-- serial casted pt PIP this date for improved carryover and improved extension to provide adjustments as needed therefore extending pt POC out at this time Plan Plan Frequency: 3-4 sessions Duration: 6-8 weeks Plan: serial casting ORL stretch MCP ROM Goals Goals Patient Goals: Decrease Swelling/Stiffness, Use Hand/Wrist/Arm Normally Again, Increase ROM, Resume Former Household Responsibilities (Cooking,Cleaning,Yard, etc.) and Resume Hobbies Goal:Full use of affected hand in daily activities including work: Yes Other Goal: pt will improve R hand PIP extension to -5 or less in order to maximize functional use of hand during day to day functional activities at rest -28 with PROM -20 ONGOING pt will verbalize/ demonstrate 100% accuracy in proper joint protection and positioning during day to day activities ONGOING pt will demonstrate 100% adherence to orthosis as needed for R hand D3 in order to promote extension ONGOING pt will improve quick dash score to 11 in order to improve functional use of R hand ONGOING pt will demonstrate 100% accuracy in HEP by third session Anticipated Interventions Anticipated Interventions Anticipated Interventions: A/AAROM/PROM, Massage, Modalities, Orthoses, Joint Protection/Energy Conservation, Education re assistive Equipment, Education re Diagnosis and Home Program Re-Evaluation Ending Re-evaluation ending: Please do not hesitate to contact me at [phone] by phone or Fax: if you have questions or concerns regarding this new plan of care! Sincerely, Lodia Tran
--- NOTE | 2024-07-04 11:25 | HP.OT.NRP ---
Patient Information Patient Information: MOMO JEFFERSON was seen in my office for initial evaluation on 02/13/24. The following Plan of Care was established for this patient: POC Established Initial Frequency: 3-4 sessions Initial Duration: 6-8 weeks Plan: serial casting ORL stretch MCP ROM Anticipated Interventions Anticipated Interventions: A/AAROM/PROM, Massage, Modalities, Orthoses, Joint Protection/Energy Conservation, Education re assistive Equipment, Education re Diagnosis and Home Program Last Seen Last Seen: This patient was last seen in our office 03/28/24. Pertinent comments regarding their Occupational therapy will appear below: This 79 year old male seen for OT with dx of R hand PIP contracture. Pt seen with ed on reverse blocking exercises, drop out orthosis then initiation of serial casting for eval plus two additional visits. discharge at this time due to lapse in time since services pt last seen 03/28/24. At this point I will be discontinuing this patient from occupational therapy. I would be happy to see this patient again in the future if found appropriate by the physician. Thank you! Loida Tran
== END 2024-03-28 19:00 | disposition home or self-care (01) ==
LOC: OT 09:00
PROVIDERS: PCP Family Medicine; Referring Provider Family Medicine; Visit Provider Family Medicine
DX: M24.541 Contracture, right hand (principal)
CPT/HCPCS: 97165; 97530

== ENCOUNTER → 2024-05-09 | Outpatient (CLI) | payer MEDICARE, SELFPAY ==
[2024-05-09 12:53] LABS: ALB/GLOB Ratio 0.9 RATIO (0.9-2.4); AST(SGOT) 17 U/L (15-37); Alanine Aminotransfer ALT/SGPT 40 U/L (16-61); Albumin, Serum 3.5 g/dL (3.2-5.0); Alkaline Phosphatase 89 U/L (45-117); Anion Gap 5 (5-15); BUN 18 mg/dL (7-18); BUN/Creat Ratio 17.1 RATIO (10-20); Calcium,Total 9.5 mg/dL (8.5-10.1); Chloride 105 mmol/L (98-107); Creatinine, Serum 1.05 mg/dL (0.70-1.30); EST Glomerular Filtration Rate 73 mL/min (>60); Est Glom Filt Rate - Afr Amer 88 mL/min (>60); Globulin 3.8 g/dL (2.2-4.2); Glucose 350 mg/dL (74-106); Potassium 4.4 mmol/L (3.5-5.1); Protein, Total 7.3 g/dL (6.4-8.2); Sodium Level 136 mmol/L (136-145)
[2024-05-09 13:27] LABS: Hemoglobin A1c 9.8 % (3.8-5.6)
== END | disposition home or self-care (01) ==
LOC: MTLAB 10:42
PROVIDERS: PCP Family Medicine; Referring Provider Family Medicine; Visit Provider Family Medicine
DX: R73.9 Hyperglycemia, unspecified (principal)
CPT/HCPCS: 36415; 80053; 83036

== ENCOUNTER → 2024-05-24 | Outpatient (CLI) | payer MEDICARE, SELFPAY ==
--- NOTE | 2024-05-24 10:05 | RAD_ITS ---
EXAM: XR RIGHT HAND COMPLETE, 3 OR MORE VIEWS CLINICAL INDICATION: Right hand pain TECHNIQUE: Frontal, lateral and oblique views of the right hand. COMPARISON: No relevant prior studies available. FINDINGS: BONES/JOINTS: There is diffuse mild narrowing of the IP joints and mild-moderate periarticular osteophytes, most pronounced at the second and third digits. No destructive erosions. Degenerative changes at the base of the thumb. No acute fracture. No subluxation. Normal alignment. SOFT TISSUES: Mild soft tissue swelling around the IP joints. No radiopaque foreign body. RAD/Hand Min 3 Views IMPRESSION: Multifocal degenerative joint changes. Electronically Signed: Cammy Delaney MD at 19:02 EDT ,
== END | disposition home or self-care (01) ==
LOC: RAD 10:04
PROVIDERS: PCP Family Medicine; Referring Provider Surgery Plastic and Reconstructive Surgery; Visit Provider Surgery Plastic and Reconstructive Surgery
DX: M65.30 Trigger finger, unspecified finger (principal)
CPT/HCPCS: 73130

== ENCOUNTER 2024-06-12 12:52 | Outpatient (RCR) | payer MEDICARE, SELFPAY | END 2024-07-11 23:59 | LOC: NS 12:52 | PROVIDERS: PCP Family Medicine; Referring Provider Family Medicine; Visit Provider Family Medicine | DX: Z71.3 Dietary counseling and surveillance (principal); E11.9 Type 2 diabetes mellitus without complications | CPT/HCPCS: 97802 ==

== ENCOUNTER 2024-07-30 14:58 | Outpatient (RCR) | payer MEDICARE, SELFPAY | END 2024-08-10 23:59 | LOC: NS 14:58 | PROVIDERS: PCP Family Medicine; Referring Provider Family Medicine; Visit Provider Family Medicine | DX: Z71.3 Dietary counseling and surveillance (principal); E11.9 Type 2 diabetes mellitus without complications | CPT/HCPCS: 97803 ==

== ENCOUNTER → 2025-01-22 | Outpatient (CLI) | payer MEDICARE, SELFPAY ==
[2025-01-22 11:05] LABS: Microalbumin,Random Urine < 12.0 mg/L (NO RANGE EST.); Microalbumin:Creatinine Ratio UNABLE TO CALCULATE mg/g CRE
[2025-01-22 12:22] LABS: Absolute Lymphocyte Count 2.06 X10^3/uL (0.83-4.51); Absolute Neutrophil Count 2.8 X10^3/uL (2.0-7.7); Basophil# 0.07 X10^3/uL; Basophil% 1.2 % (0-1); Eosinophil# 0.38 X10^3/uL; Eosinophils% 6.4 % (0-5); Hemoglobin 15.3 g/dL (13.0-16.5); Lymphocyte # 2.06 X10^3/ul (0.83-4.51); Lymphocyte % 34.8 % (19-41); Mean Corpuscular Hgb 30.3 pg (27.0-32.0); Mean Corpuscular Volume 89.1 fL (80-94); Mean Platelet Vol. 9.2 fl (6.2-12.0); Monocyte# 0.63 X10^3/uL; Monocyte% 10.6 % (0-10); NRBC Flagged by Analyzer 0 % (0-5); Neutrophil # 2.77 X10^3/uL (2.7-7.7); Neutrophil % 46.8 % (47-70); Platelet Count 250 K/mm3 (150-450); RBC Distribution Width CV 12.5 % (11.6-14.6); RBC Distribution Width SD 40.8 fl (35.1-43.9); Red Blood Count 5.05 M/mm3 (4.6-6.2); White Blood Count 5.9 K/mm3 (4.4-11.0)
[2025-01-22 13:09] LABS: ALB/GLOB Ratio 1.4 RATIO (0.9-2.4); AST(SGOT) 23 U/L (<=37); Alanine Aminotransfer ALT/SGPT 17 U/L (<=46); Albumin, Serum 4.1 g/dL (3.4-4.8); Alkaline Phosphatase 67 U/L (40-129); Anion Gap 11 (5-15); BUN 18 mg/dL (4-19); BUN/Creat Ratio 20.2 RATIO (10-20); Calcium,Total 9.4 mg/dL (7.6-11.0); Carbon Dioxide 23.8 mmol/L (21.0-32.0); Chloride 107 mmol/L (98-108); Cholesterol 219 mg/dL (<=200); Creatinine, Serum 0.87 mg/dL (0.70-1.20); EST Glomerular Filtration Rate 89 (>60); Globulin 2.8 g/dL (2.2-4.2); Glucose 105 mg/dL (70-99); High Density Lipoprotein 46 mg/dL; Low Density Lipoprotein Calc. 156 mg/dL; PSA,Total- Diagnostic < 0.02 ng/mL (0.00-4.00); Potassium 4.2 mmol/L (3.3-5.1); Protein, Total 6.9 g/dL (5.9-8.4); Sodium Level 142 mmol/L (133-145); Total Bilirubin 0.47 mg/dL (0.00-1.30); Triglycerides 84 mg/dL; Very Low Density Lipoprotein 17 mg/dL (5-40); cholesterol:hdl ratio screen 4.74
[2025-01-22 13:21] LABS: Hemoglobin A1c 6.2 % (<=5.6)
== END | disposition home or self-care (01) ==
LOC: MTLAB 09:18
PROVIDERS: PCP Family Medicine; Referring Provider Family Medicine; Visit Provider Family Medicine
DX: E11.9 Type 2 diabetes mellitus without complications (principal); Z85.46 Personal history of malignant neoplasm of prostate
CPT/HCPCS: 36415; 80053; 80061; 82043; 82570; 83036; 84153; 85025

== ENCOUNTER → 2025-08-04 | Outpatient (CLI) | payer MEDICARE, SELFPAY ==
[2025-08-04 12:48] LABS: Creatinine, Urine (random) 45.90 mg/dL (39.00-259.00); Microalbumin,Random Urine < 12.0 mg/L (<20 mg/L)
[2025-08-04 15:30] LABS: AST(SGOT) 21 U/L (<=37); Alanine Aminotransfer ALT/SGPT 21 U/L (<=46); Albumin, Serum 4.2 g/dL (3.4-4.8); Alkaline Phosphatase 73 U/L (40-129); Anion Gap 11 (5-15); BUN 18 mg/dL (4-19); BUN/Creat Ratio 19.3 RATIO (10-20); Calcium,Total 9.5 mg/dL (7.6-11.0); Carbon Dioxide 26.2 mmol/L (21.0-32.0); Chloride 104 mmol/L (98-108); Globulin 2.9 g/dL (2.2-4.2); Glucose 120 mg/dL (70-99); Potassium 4.1 mmol/L (3.3-5.1)
== END | disposition home or self-care (01) ==
LOC: MTLAB 11:21
PROVIDERS: PCP Family Medicine; Referring Provider Family Medicine; Visit Provider Family Medicine
DX: E11.9 Type 2 diabetes mellitus without complications (principal)
CPT/HCPCS: 36415; 80053; 82043; 82570; 83036